=== PATIENT | female | born 1980 | race Caucasian/White ===

== ENCOUNTER 2019-12-04 07:42 | Outpatient (CLI) | payer OTHER, SELFPAY | END 2019-12-04 07:43 | disposition home or self-care (01) | LOC: ANHLAB 07:42 | PROVIDERS: Visit Provider Family Medicine | DX: R39.9 Unspecified symptoms and signs involving the genitourinary system (principal) | CPT/HCPCS: 87086 ==

== ENCOUNTER 2020-06-06 07:27 | Outpatient (CLI) | payer OTHER, SELFPAY ==
[2020-06-06 08:04] LABS: Alanine Aminotransferase 29 U/L (4-35); Alkaline Phosphatase 53 U/L (38-126); Anion Gap 10 mmol/L (8-16); Aspartate Amino Transferase 30 U/L (14-36); Bilirubin,Total 0.3 mg/dL (0.2-1.3); Blood Urea Nitrogen 12 mg/dL (7-17); Calcium 9.1 mg/dL (8.4-10.2); Carbon Dioxide 25 mmol/L (22-30); Chloride 103 mmol/L (98-107); Cholesterol 234 mg/dL (0-200); Estimated Glomerular Filt Rate > 60; Glucose 103 mg/dL (65-105); HDL Direct 55 mg/dL; Potassium 4.1 mmol/L (3.4-5.0); Sodium 138 mmol/L (137-145); Triglycerides 236 mg/dL (<150)
[2020-06-06 08:15] LABS: LDL Cholesterol Direct 141 mg/dL
[2020-06-06 08:45] LABS: HIV 1/2 Ab P24 Ag Result Negative (Negative)
[2020-06-06 08:49] LABS: Hepatitis B Surface Antigen Negative (Negative)
[2020-06-06 09:06] LABS: Hepatitis C Virus Antibody Negative (Negative)
[2020-06-07 11:30] LABS: Rapid Plasma Reagin Non-Reactive (NonReactive)
== END 2020-06-06 07:28 | disposition home or self-care (01) ==
LOC: ANHLAB 07:30
PROVIDERS: Visit Provider Family Medicine
DX: Z11.3 Encounter for screening for infections with a predominantly sexual mode of transmission (principal); E78.5 Hyperlipidemia, unspecified; I10 Essential (primary) hypertension
CPT/HCPCS: 36415; 80053; 80061; 86592; 86695; 86696; 86703; 86803; 87340; G0432

== ENCOUNTER 2020-12-09 04:30 | Emergency (ER) | payer OTHER, SELFPAY ==
--- NOTE | ~2020-12-09 | CT_ITS ---
EXAMINATION: CT brain wo con INDICATION: Head injury COMPARISON: None TECHNIQUE: Standard unenhanced head CT. The dose-length product (DLP) was 605.33 mGy-cm. The mA was a djusted according to patient size. Iterative reconstruction technique was employed. FINDINGS: There is no intracranial hemorrhage, acute infarction, or abnormal mass lesion. The ventric les are normal. There is no abnormal mass effect or midline shift. The montez-white matter differentiat ion is normal. The basal cisterns are patent. The orbits are normal. The paranasal sinuses, mastoids and calvarium are normal. IMPRESSION: 1. No acute intracranial abnormality. Reviewed, dictated and finalized at location A.
--- NOTE | ~2020-12-09 | CT_ITS ---
EXAMINATION: CT facial & cervical spine wo DATE: 12/09/2020 05:15 INDICATION: Head injury TECHNIQUE: Computed tomography (CT) of the maxillofacial region and cervical spine was performed with out intravenous contrast. The dose-length product (DLP) was 551.81 mGy-cm. Automated exposure control and iterative reconstruction technique were employed. COMPARISON: None FINDINGS: MAXILLOFACIAL CT: No facial bone fracture is identified. The paranasal sinuses are clear. The globes and orbits are nor mal. The soft tissues are unremarkable. CERVICAL SPINE CT: There is no fracture, dislocation, or subluxation. The vertebral body heights, alignment, and interve rtebral disc spaces are normal. The paravertebral soft tissues are unremarkable. The odontoid is inta ct. IMPRESSION: 1. No acute abnormality of the facial bones or cervical spine. Reviewed, dictated and finalized at location A.
[2020-12-09 04:32] VITALS: BP 186/100; PULSE 119; RESP 20; TEMP 37.1; O2SAT 98
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
[2020-12-09] MEDS: TETANUS,DIPHTHERIA,AC PERTUSSIS ADULT (0.5 ML) BOOSTRIX IM (05:03)
== END 2020-12-09 06:37 | disposition home or self-care (01) ==
PROVIDERS: Emergency Provider Emergency Medicine; PCP Family Medicine
DX: S00.83XA Contusion of other part of head, initial encounter (principal); S50.12XA Contusion of left forearm, initial encounter; S50.11XA Contusion of right forearm, initial encounter; Z23 Encounter for immunization; Y04.2XXA Assault by strike against or bumped into by another person, initial encounter; Y93.F9 Activity, other caregiving
CPT/HCPCS: 70450; 70486; 72125; 90471; 90715; 99284

== ENCOUNTER 2021-10-20 07:36 | Outpatient (CLI) | payer OTHER, SELFPAY ==
[2021-10-20 08:52] LABS: Basophils Absolute Auto 0.1 K/mm3 (0.0-0.1); Basophils Percent Auto 0.6 % (0.2-1.2); Eosinophils Absolute Auto 0.2 K/mm3 (0-0.3); Eosinophils Percent Auto 1.8 % (0-4.4); Hematocrit 37.3 % (37.0-47.0); Hemoglobin 11.8 g/dL (12.0-15.0); Immature Granulocyte Absolute 0.15 K/mm3 (0.00-0.031); Immature Granulocyte Percent A 1.1 % (0-0.5); Lymphocytes Absolute Auto 4.46 K/mm3 (0.9-3.2); Lymphocytes Percent Auto 32.6 % (18.3-44.2); Mean Corpuscular HGB Conc 31.6 g/dl (32-36); Mean Corpuscular Hemoglobin 27.8 pg (26-34); Mean Platelet Volume 10.2 fl (7.4-10.4); Monocytes Absolute Auto 0.9 K/mm3 (0.1-0.6); Monocytes Percent Auto 6.6 % (2.6-8.5); Neutrophils Absolute Auto 7.9 K/mm3 (1.3-6.7); Neutrophils Percent Auto 57.3 % (45.5-73.1); Platelet Count Result 289 k/mm3 (150-375); Red Blood Count 4.24 M/mm3 (4.2-5.4); Red Cell Distribution Width 14.6 % (11.5-14.5); White Blood Count 13.7 K/mm3 (4.5-10.0)
[2021-10-20 09:02] LABS: Alanine Aminotransferase 36 U/L (6-35); Albumin Level 4.3 g/dL (3.5-5.1); Alkaline Phosphatase 55 U/L (38-126); Anion Gap 14 mmol/L (8-16); Aspartate Amino Transferase 41 U/L (14-36); Bilirubin,Total 0.5 mg/dL (0.2-1.3); Blood Urea Nitrogen 14 mg/dL (7-17); Calcium 9.6 mg/dL (8.4-10.2); Carbon Dioxide 24 mmol/L (22-30); Chloride 100 mmol/L (98-107); Cholesterol 206 mg/dL (0-200); Estimated Glomerular Filt Rate > 60; Glucose 108 mg/dL (65-110); HDL Direct 53 mg/dL; Potassium 3.9 mmol/L (3.4-5.0); Sodium 138 mmol/L (137-145); Triglycerides 280 mg/dL (<150)
[2021-10-20 09:13] LABS: LDL Cholesterol Direct 112 mg/dL
== END 2021-10-20 07:37 | disposition home or self-care (01) ==
PROVIDERS: PCP Family Medicine; Visit Provider Family Medicine
DX: Z01.818 Encounter for other preprocedural examination (principal); Z13.220 Encounter for screening for lipoid disorders
CPT/HCPCS: 36415; 80053; 80061; 85025

== ENCOUNTER 2021-11-27 00:10 | Day surgery (SDC) | payer OTHER, SELFPAY ==
[2021-11-13 14:46] VITALS: BMI 49.4
[2021-11-27] MEDS: LACTATED RINGERS 1,000 ML 150 ML IV CONT (07:49)
[2021-11-27 07:50] VITALS: BP 152/87; PULSE 97; RESP 18; TEMP 36.3; O2SAT 99
--- NOTE | 2021-11-27 08:03 | WPDANESEPPF ---
Anes - Initial Pre Proc Eval Procedure: Operation Date: 11/27/21 08:45 Proposed Procedures p Esophagogastroduodenoscopy - Rony Harkins MD Date/Time: 11/27/21 08:03 Surgeon: Rony Harkins MD Pre Op Diagnosis: GERD Patient Data Age: 41 Gender: F Height: 1.75 m Weight: 153.8 kg Last Vital Signs Temp 36.3 C L 11/27/21 07:50 Pulse 97 11/27/21 07:50 Resp 18 11/27/21 07:50 BP 152/87 H 11/27/21 07:50 Pulse Ox 99 11/27/21 07:50 O2 Del Method Room Air 11/27/21 07:50 Allergies Allergy/AdvReac Type Severity Reaction Status Date / Time No Known Allergies Allergy Verified 11/27/21 07:49 Home Medications Medication Instructions Recorded Confirmed Type allopurinol 300 mg tablet 300 mg PO DAILY 12/09/20 11/13/21 History meloxicam 15 mg tablet 15 mg PO DAILY PRN Pain 12/09/20 11/13/21 History omeprazole 20 mg capsule,delayed 20 mg PO DAILY 12/09/20 11/13/21 History release drospirenone (contraceptive) 4 mg 1 tablet PO DAILY #84 tabs 10/30/21 11/13/21 Rx (28) tablet (Slynd) lisinopril 20 1 tablet PO DAILY 11/05/21 11/13/21 History mg-hydrochlorothiazide 25 mg tablet alprazolam 0.25 mg tablet 0.25 mg PO TID PRN Anxiety 11/13/21 11/13/21 History cyclobenzaprine 10 mg tablet 10 mg PO TID PRN Muscle Spasm 11/13/21 11/13/21 History Patient hx anesthesia problems: none Family hx anesthesia problems: none Results Review: All pre-operative results and documents have been reviewed as part of the pre-operative evaluation. [facility] Past Medical History Medical History (Updated 11/27/21 @ 08:03 by Roland Burt MD) Anxiety disorder High cholesterol Hypertension Morbid obesity ROSSY on CPAP Surgical History Surgical History History of cholecystectomy [place] teeth removed Family History Family History Other Acute myocardial infarction Diabetes mellitus Hypercholesterolemia Social History Social History Smoking status: Never smoker Alcohol intake: current Drinks per week: 3 Substance use: never Living arrangements: alone Gender identity (if verbalized by the patient): Female Spiritual care concerns: No Anes - Eval Final PreProcedure Day of Procedure 11/27/21 08:03 Patient weight: morbidly obese Heart: regular rate and rhythm Lungs: clear to auscultation Airway: Mallampati scale class II Neurological: alert and oriented Last oral intake: >/= 8 hours ASA classification: II Emergent: no Anesthetic plan: proceed Anesthesia type and monitoring: general GIVS and standard monitoring Results Review: All pre-operative results and documents have been reviewed as part of the pre-operative evaluation. Informed Consent: The patient's anesthetic plan and its attendant risks and benefits were discussed with the patient/family/POA. Questions were solicited and answers provided to the satisfaction of the patient/family/POA.
--- NOTE | 2021-11-27 08:32 | PM.HPGS ---
History of Present Illness History of Present Illness Consent: Risks, benefits, and alternatives have been discussed and questions answered. Patient agrees to proceed with procedure. Chief complaint: GERD Narrative: Joann Khalil is a 41 year old female with gerd controlled with omeprazole for 5 years but never had EGD, also she will get gastric sleeve at some point. Review of Systems Constitutional: Constitutional: Denies headache(s) and Denies weakness Eyes: Eyes: Denies blurry vision ENT: Reports Normal hearing present, Denies headache(s) and Denies neck pain Cardiovascular: Cardiovascular: Denies chest pain and Denies dyspnea Respiratory: Respiratory: Denies dyspnea Gastrointestinal: Gastrointestinal: Reports no additional gastrointestinal complaints Genitourinary: Genitourinary: Denies dysuria Musculoskeletal: Musculoskeletal: Denies neck pain Integumentary/Breasts: Skin/Breast: Denies dry skin Neurologic: Reports Normal hearing present, Denies headache(s) and Denies weakness Psychiatric: Psychiatric: Denies anxiety Endocrine: Endocrine: Denies change in body appearance Hematologic/Lymphatic: Hematologic/Lymphatic: Denies easy bleeding Allergic/Immunologic: Allergic/Immunologic: Denies urticaria PMFSH Past Medical History Medical History (Updated 11/27/21 @ 08:33 by Rony Harkins MD) Anxiety disorder GERD (gastroesophageal reflux disease) High cholesterol Hypertension Morbid obesity ROSSY on CPAP Surgical History Surgical History History of cholecystectomy [place] teeth removed Family History Family History Other Acute myocardial infarction Diabetes mellitus Hypercholesterolemia Social History Social History Smoking status: Never smoker Alcohol intake: current Drinks per week: 3 Substance use: never Living arrangements: alone Gender identity (if verbalized by the patient): Female Spiritual care concerns: No Meds Home Medications and Allergies Home Medications Medication Instructions Recorded Confirmed Type allopurinol 300 mg tablet 300 mg PO DAILY 12/09/20 11/13/21 History meloxicam 15 mg tablet 15 mg PO DAILY PRN Pain 12/09/20 11/13/21 History omeprazole 20 mg capsule,delayed 20 mg PO DAILY 12/09/20 11/13/21 History release drospirenone (contraceptive) 4 mg 1 tablet PO DAILY #84 tabs 10/30/21 11/13/21 Rx (28) tablet (Slynd) lisinopril 20 1 tablet PO DAILY 11/05/21 11/13/21 History mg-hydrochlorothiazide 25 mg tablet alprazolam 0.25 mg tablet 0.25 mg PO TID PRN Anxiety 11/13/21 11/13/21 History cyclobenzaprine 10 mg tablet 10 mg PO TID PRN Muscle Spasm 11/13/21 11/13/21 History Allergies Allergy/AdvReac Type Severity Reaction Status Date / Time No Known Allergies Allergy Verified 11/27/21 07:49 Vital Signs Vital Signs - 24 hr 11/27/21 07:50 Temperature 97.3 F L Pulse Rate 97 Respiratory Rate 18 Blood Pressure 152/87 H Pulse Oximetry 99 Oxygen Delivery Room Air Exam Const: General: comfortable and no acute distress HENMT: General nose exam: Normal nares present Eyes: General: appearance normal, both eyes and all related structures Neck: Neck: no JVD Resp: Auscultation: clear to auscultation bilaterally Cardio: Rate: regular rate Rhythm: regular rhythm GI: Inspection: non-distended GI Palp: Yes Soft to palpation Skin: General skin exam: normal color Neuro: General: gait normal Speech: normal speech Extrem: General: normal to inspection Psych: Mental Status: mental status grossly normal Assessment and Plan Assessment and plan (1) GERD (gastroesophageal reflux disease): Code(s): K21.9 - Gastro-esophageal reflux disease without esophagitis Status: Acute Assessment and Plan: egd with bx controlled with pp
[2021-11-27 08:48] VITALS: BP 144/91; PULSE 102; RESP 18; O2SAT 99
[2021-11-27 08:58] VITALS: BP 141/87; PULSE 101; RESP 18; O2SAT 98
[2021-11-27 09:08] VITALS: BP 139/94; PULSE 113; RESP 19; O2SAT 97
== END 2021-11-27 09:21 | disposition home or self-care (01) ==
PROVIDERS: PCP Family Medicine; Visit Provider Internal Medicine Gastroenterology
PROC: 0DJ08ZZ Inspection of Upper Intestinal Tract, Via Natural or Artificial Opening Endoscopic (ICD-10-PCS; CPT 43235; principal; 2021-11-27 08:45)
DX: K21.9 Gastro-esophageal reflux disease without esophagitis (principal); F41.9 Anxiety disorder, unspecified; E78.00 Pure hypercholesterolemia, unspecified; I10 Essential (primary) hypertension; G47.33 Obstructive sleep apnea (adult) (pediatric); Z90.49 Acquired absence of other specified parts of digestive tract; E66.01 Morbid (severe) obesity due to excess calories; Z68.43 Body mass index [BMI] 50.0-59.9, adult
CPT/HCPCS: 43239; 87081; 88305; J2704; J7120

== ENCOUNTER → 2022-01-28 13:06 | Outpatient (CLI) | payer OTHER, SELFPAY ==
--- NOTE | ~2022-01-28 | XR_ITS ---
XR knee RT 3V DATE: 01/28/2022 13:19 INDICATION: Posterior knee pain for 9 to 12 months. No injury. TECHNIQUE: AP, lateral, sunrise views COMPARISON: None FINDINGS: There is tricompartment periarticular spurring. There is moderate narrowing at the medial c ompartment and patellofemoral compartment joint spaces. No fracture, dislocation, periosteal reaction or bone destruction or significant joint effusion is ev ident. No radiopaque intra-articular loose body or chondrocalcinosis. No periosteal reaction or bone destruction. There is osteopenia. IMPRESSION: Tricompartment osteoarthritis Osteopenia Reviewed, dictated and finalized at location A. ER SHOP MANAGER
== END ==
PROVIDERS: PCP Family Medicine; Visit Provider Family Medicine
DX: M25.561 Pain in right knee (principal); M17.11 Unilateral primary osteoarthritis, right knee; M85.861 Other specified disorders of bone density and structure, right lower leg
CPT/HCPCS: 73562

== ENCOUNTER 2022-02-26 10:04 | Outpatient (CLI) | payer OTHER, SELFPAY ==
--- NOTE | ~2022-02-26 | MM_ITS ---
EXAMINATION: MM screening brenda BI w emerita HISTORY: Baseline screening mammogram TECHNIQUE: Craniocaudal and mediolateral oblique 3-D tomosynthesis images were obtained and synthetic 2-D images were generated. CAD analysis was submitted and interpreted. COMPARISON: None, baseline BREAST PARENCHYMAL COMPOSITION: There are scattered areas of fibroglandular density. FINDINGS: RIGHT BREAST: No suspicious mass, calcification, or architectural distortion are identified to sugges t malignancy. LEFT BREAST: An asymmetry is present in the middle third of the inner breast 5 cm from the nipple on the craniocaudal view. IMPRESSION: 1. Right breast asymmetry on the craniocaudal view. 2. Additional mammographic views and possible breast ultrasound are recommended. BI-RADS Category 0: Incomplete: Needs additional imaging evaluation. Reviewed, dictated and finalized at location A. CENTER MANAGER IMPRESSION: 1. Right breast asymmetry on the craniocaudal view. 2. Additional mammographic views and possible breast ultrasound are recommended . BI-RADS Category 0: Incomplete: Needs additional imaging evaluation.
== END 2022-02-26 10:05 | disposition home or self-care (01) ==
LOC: ANHIMG 10:06
PROVIDERS: PCP Family Medicine; Visit Provider Obstetrics & Gynecology
DX: Z12.31 Encounter for screening mammogram for malignant neoplasm of breast (principal)
CPT/HCPCS: 77063; 77067

== ENCOUNTER 2022-03-20 12:48 | Outpatient (CLI) | payer OTHER, SELFPAY ==
--- NOTE | ~2022-03-20 | MMUS_ITS ---
EXAMINATION: MM diagnostic brenda LT w emerita, US breast LT limited HISTORY: TECHNIQUE: Additional 3-D tomosynthesis images of were performed and synthetic 2-D images were genera sam. CAD analysis was submitted and interpreted. High resolution breast ultrasound was performed. COMPARISON: None FINDINGS: MAMMOGRAPHIC FINDINGS: There is up to 5 x 10 mm irregular opacity in the anterior lower inner left breast. ULTRASOUND: Left breast 7:00 2 cm from nipple: There is an ill-defined irregular area of hypoechogenicity with po sterior shadowing which likely corresponds to the mammographic abnormality. Ultrasound-guided biopsy is recommended. IMPRESSION: 1. Suspicious ill-defined irregular mass in the lower inner left breast at 7:00 2. Ultrasound-guided biopsy is recommended BI-RADS category 4, suspicious findings. Dr. Mayes telephoned the report and ultrasound-guided biopsy recommendation on 03/20/2022 at 1345 hour s to Mackenzie Kaur. Reviewed, dictated and finalized at location A. NE DRILLER IMPRESSION: 1. Suspicious ill-defined irregular mass in the lower inner left breast at 7:00 2. Ultrasound-guided biopsy is recommended BI-RADS category 4, suspicious findings. Dr. Mayes telephoned the report and ultrasound-guided biopsy recommendation on 05/21/2021 at 1345 hours to Mackenzie Kaur.
== END 2022-03-20 12:49 | disposition home or self-care (01) ==
LOC: ANHIMG 12:49
PROVIDERS: PCP Family Medicine; Visit Provider Obstetrics & Gynecology
DX: N64.89 Other specified disorders of breast (principal); R92.8 Other abnormal and inconclusive findings on diagnostic imaging of breast
CPT/HCPCS: 76642; 77061; 77065; G0279

== ENCOUNTER 2022-05-03 10:58 | Outpatient (CLI) | payer OTHER, SELFPAY ==
[2022-05-03 11:41] LABS: Hemoglobin A1C 5.3 % (<5.7)
[2022-05-03 11:42] LABS: Alanine Aminotransferase 52 U/L (6-35); Albumin Level 4.4 g/dL (3.5-5.1); Alkaline Phosphatase 67 U/L (38-126); Aspartate Amino Transferase 34 U/L (14-36); Bilirubin,Total 0.6 mg/dL (0.2-1.3)
== END 2022-05-03 10:59 | disposition home or self-care (01) ==
LOC: ANHLAB 11:02
PROVIDERS: PCP Family Medicine; Visit Provider Family Medicine
DX: R74.01 Elevation of levels of liver transaminase levels (principal)
CPT/HCPCS: 36415; 80076; 83036

== ENCOUNTER 2022-07-01 07:49 | Outpatient (CLI) | payer OTHER, SELFPAY ==
[2022-07-01 08:11] LABS: Basophils Absolute Auto 0.1 K/mm3 (0.0-0.1); Basophils Percent Auto 0.6 % (0.2-1.2); Eosinophils Absolute Auto 0.3 K/mm3 (0-0.3); Eosinophils Percent Auto 2.2 % (0-4.4); Hematocrit 38.3 % (37.0-47.0); Hemoglobin 12.4 g/dL (12.0-15.0); Immature Granulocyte Absolute 0.04 K/mm3 (0.00-0.031); Immature Granulocyte Percent A 0.3 % (0-0.5); Lymphocytes Absolute Auto 3.05 K/mm3 (0.9-3.2); Lymphocytes Percent Auto 26.1 % (18.3-44.2); Mean Corpuscular HGB Conc 32.4 g/dl (32-36); Mean Corpuscular Hemoglobin 28.4 pg (26-34); Mean Corpuscular Volume 87.8 fl (80-100); Mean Platelet Volume 10.4 fl (7.4-10.4); Monocytes Absolute Auto 0.7 K/mm3 (0.1-0.6); Monocytes Percent Auto 5.9 % (2.6-8.5); Neutrophils Absolute Auto 7.6 K/mm3 (1.3-6.7); Neutrophils Percent Auto 64.9 % (45.5-73.1); Platelet Count Result 316 k/mm3 (150-375); Red Blood Count 4.36 M/mm3 (4.2-5.4); Red Cell Distribution Width 16.1 % (11.5-14.5); White Blood Count 11.7 K/mm3 (4.5-10.0)
[2022-07-01 08:24] LABS: Alanine Aminotransferase 37 U/L (6-35); Albumin Level 4.1 g/dL (3.5-5.1); Alkaline Phosphatase 67 U/L (38-126); Anion Gap 7 mmol/L (8-16); Aspartate Amino Transferase 26 U/L (14-36); Bilirubin,Total 0.9 mg/dL (0.2-1.3); Blood Urea Nitrogen 13 mg/dL (7-17); Calcium 9.2 mg/dL (8.4-10.2); Carbon Dioxide 27 mmol/L (22-30); Chloride 105 mmol/L (98-107); Cholesterol 199 mg/dL (0-200); Estimated Glomerular Filt Rate > 60; Glucose 95 mg/dL (65-110); HDL Direct 37 mg/dL; Magnesium 2.1 mg/dL (1.6-2.3); Potassium 3.9 mmol/L (3.4-5.0); Sodium 139 mmol/L (137-145); Triglycerides 123 mg/dL (<150)
[2022-07-01 08:35] LABS: LDL Cholesterol Direct 122 mg/dL
[2022-07-01 08:52] LABS: Vitamin D 25 Hydroxy 79.7 ng/mL
[2022-07-01 10:26] LABS: Folic Acid > 20.0 ng/mL (2.76->20)
== END 2022-07-01 07:50 | disposition home or self-care (01) ==
PROVIDERS: PCP Family Medicine
DX: K91.2 Postsurgical malabsorption, not elsewhere classified (principal); Z13.21 Encounter for screening for nutritional disorder; Z98.84 Bariatric surgery status
CPT/HCPCS: 36415; 80053; 80061; 82306; 82607; 82746; 83036; 83735; 84425; 85025

== ENCOUNTER 2022-11-21 11:39 | Outpatient (CLI) | payer OTHER, SELFPAY ==
--- NOTE | ~2022-11-21 | MM_ITS ---
EXAMINATION: MM diagnostic brenda LT w emerita HISTORY: Follow-up after benign left breast biopsy. TECHNIQUE: Craniocaudal, mediolateral, and mediolateral oblique 3-D tomosynthesis images of the left breast were performed and synthetic 2-D images were generated. CAD analysis was submitted and interpr eted. COMPARISON: 03/20/2022, 02/26/2022 BREAST PARENCHYMAL COMPOSITION: There are scattered areas of fibroglandular density. FINDINGS: There are changes of interval biopsy in the lower inner left breast. No suspicious mass, ca lcification, or architectural distortion are identified. IMPRESSION: 1. No mammographic evidence of malignancy. 2. Routine screening mammography is recommended. BI-RADS Category 1: Negative Reviewed, dictated and finalized at location L.
== END 2022-11-21 11:40 | disposition home or self-care (01) ==
PROVIDERS: PCP Family Medicine; Visit Provider Obstetrics & Gynecology
DX: N64.89 Other specified disorders of breast (principal)
CPT/HCPCS: 77061; 77065; G0279

== ENCOUNTER 2023-01-03 07:54 | Outpatient (CLI) | payer OTHER, SELFPAY ==
[2023-01-03 08:58] LABS: Hematocrit 37.1 % (37.0-47.0); Hemoglobin 12.2 g/dL (12.0-15.0); Mean Corpuscular HGB Conc 32.9 g/dl (32-36); Mean Corpuscular Hemoglobin 29.4 pg (26-34); Mean Corpuscular Volume 89.4 fl (80-100); Mean Platelet Volume 10.4 fl (7.4-10.4); Platelet Count Result 286 k/mm3 (150-375); Red Blood Count 4.15 M/mm3 (4.2-5.4); Red Cell Distribution Width 13.2 % (11.5-14.5); White Blood Count 7.9 K/mm3 (4.5-10.0)
[2023-01-03 09:13] LABS: Hemoglobin A1C 4.8 % (<5.7)
[2023-01-03 09:14] LABS: Alanine Aminotransferase 46 U/L (6-35); Albumin Level 4.4 g/dL (3.5-5.1); Alkaline Phosphatase 51 U/L (38-126); Anion Gap 7 mmol/L (8-16); Aspartate Amino Transferase 34 U/L (14-36); Bilirubin,Total 0.9 mg/dL (0.2-1.3); Blood Urea Nitrogen 17 mg/dL (7-17); Calcium 9.4 mg/dL (8.4-10.2); Carbon Dioxide 28 mmol/L (22-30); Chloride 99 mmol/L (98-107); Cholesterol 206 mg/dL (0-200); Estimated Glomerular Filt Rate > 60; Glucose 86 mg/dL (65-110); HDL Direct 54 mg/dL; Potassium 3.4 mmol/L (3.4-5.0); Sodium 134 mmol/L (137-145); Triglycerides 109 mg/dL (<150)
[2023-01-03 09:25] LABS: LDL Cholesterol Direct 103 mg/dL
[2023-01-03 09:37] LABS: Vitamin D 25 Hydroxy 78.9 ng/mL
[2023-01-03 10:27] LABS: Folic Acid > 20.0 ng/mL (2.76->20)
[2023-01-08 14:02] LABS: Vitamin B1 27 nmol/L (8-30)
== END 2023-01-03 07:55 | disposition home or self-care (01) ==
PROVIDERS: PCP Family Medicine; Referring Provider Family Medicine
DX: K91.2 Postsurgical malabsorption, not elsewhere classified (principal); Z13.21 Encounter for screening for nutritional disorder; Z98.84 Bariatric surgery status
CPT/HCPCS: 36415; 80053; 80061; 82306; 82607; 82746; 83036; 83735; 84425; 85027

== ENCOUNTER 2023-01-23 19:14 | Emergency (ER) | payer OTHER, SELFPAY ==
--- NOTE | ~2023-01-23 | XR_ITS ---
XR finger 3rd RT min 2V, XR hand RT min 3V 01/23/2023 19:38 Indication: Right third finger pain after trauma Procedure: 4 views right third finger and 3 views right hand Comparison: No prior studies for comparison. Findings: There is an ossific density dorsal to the third distal interphalangeal joint with flexion d eformity at the DIP. No foreign bodies. Impression: 1: Probable acute avulsion fracture dorsal margin of the third distal interphalangeal joint with flex ion deformity, consistent with injury to the extensor mechanism. Reviewed, dictated and finalized at location A. Impression: 1: Probable acute avulsion fracture dorsal margin of the third distal interphal angeal joint with flexion deformity, consistent with injury to the extensor mec hanism. Impression: 1: Probable acute avulsion fracture dorsal margin of the third distal interphal angeal joint with flexion deformity, consistent with injury to the extensor mec hanism.
[2023-01-23 19:24] VITALS: BP 136/90; PULSE 93; RESP 18; TEMP 36.8; O2SAT 100
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
[2023-01-23 21:00] VITALS: BP 144/102; PULSE 82; RESP 16; TEMP 36.7; O2SAT 98
== END 2023-01-23 21:01 | disposition home or self-care (01) ==
LOC: ANHED 20:45
PROVIDERS: Emergency Provider Physician Assistant; PCP Family Medicine
DX: M20.011 Mallet finger of right finger(s) (principal); F41.9 Anxiety disorder, unspecified; E78.00 Pure hypercholesterolemia, unspecified; I10 Essential (primary) hypertension; G47.33 Obstructive sleep apnea (adult) (pediatric); E66.01 Morbid (severe) obesity due to excess calories; Z68.29 Body mass index [BMI] 29.0-29.9, adult; K21.9 Gastro-esophageal reflux disease without esophagitis; Z98.84 Bariatric surgery status; Z90.49 Acquired absence of other specified parts of digestive tract
CPT/HCPCS: 29130; 73130; 73140; 99283

== ENCOUNTER 2023-01-30 13:39 | Outpatient (RCR) | payer OTHER, SELFPAY ==
--- NOTE | 2023-01-30 14:49 | OTOPEVAL1 ---
Assessment and note entered by Aris Tucker, ERMELINDA/Feng, CHT Evaluation Information Diagnosis Mallet finger of right middle finger Subjective Information Patient has been splinted in extension since 01/25/23. She is an RN and right handed. Reports difficulties with any hand use - writing, typing, and self care. Presents in a Stax splint. Reported Pain Level Pain Score 0: Self Report Assessment OT Clinical Summary Patient referred to OT with dx of mallet finger to right middle finger. She presents today in a Stax splint with skin maceration noted beneath the splint. Fabricated a custom thermoplastic splint for patient to also use to let the skin on the dorsum of the finger to be more open to air. She plans to alternate these, Stax for when at work as it's easier to clean and the thermoplastic outside of work. Educated on ROM of the uninvolved joints. Plan: Patient to continue splinting and ROM of the unaffected joints x6 weeks. Scheduled for her to return to initiate ROM of the DIP and to begin splint weaning schedule. Allowing her to return on an as needed basis during those 6 weeks for any splinting adjustments or needs. Plan of Care Interventions Therapeutic Exercise,Check Out for Orthotic/Pr OT Services Indicated Yes Treatment Frequency and 0-1x/week for 6 weeks Duration These treatments will address the objective and functional deficits as defined above. The patient will be advanced safely and appropriately in order for the patient to progress towards his/her prior level of function. Additional exercises will be introduced and as well as a comprehensive home exercise program upon discharge, if needed, ?to ensure carryover of functional gains achieved in the clinic. This treatment plan has been reviewed and agreement upon by the patient.
--- NOTE | 2023-03-07 13:37 | OTOPEVAL1 ---
Assessment and note entered by ERMELINDA Monique/Feng, CHT Discharge Notification 03/07/23 OT Clinical Summary Patient referred to OT with dx of mallet finger of the right middle finger. A custom DIP extension splint was fabricated and she was issued ROM HEP of the uninvolved joints. She did not need to return for any splinting needs since her initial appointment on 01/30/23. Discharging from OT. These treatments will address the objective and functional deficits as defined above. The patient will be advanced safely and appropriately in order for the patient to progress towards his/her prior level of function. Additional exercises will be introduced and as well as a comprehensive home exercise program upon discharge, if needed, ?to ensure carryover of functional gains achieved in the clinic. This treatment plan has been reviewed and agreement upon by the patient.
== END 2023-03-07 14:21 | disposition home health service (06) ==
LOC: ANHGOSHOT 13:39
PROVIDERS: PCP Family Medicine; Visit Provider Plastic Surgery
DX: M20.011 Mallet finger of right finger(s) (principal)
CPT/HCPCS: 97165; L3933

== ENCOUNTER 2023-04-08 08:56 | Outpatient (CLI) | payer OTHER, SELFPAY ==
--- NOTE | ~2023-04-08 | MM_ITS ---
EXAMINATION: MM screening brenda BI w emerita HISTORY: Screening TECHNIQUE: Craniocaudal and mediolateral oblique 3-D tomosynthesis images were obtained and synthetic 2-D images were generated. CAD analysis was submitted and interpreted. COMPARISON: Comparison to multiple prior studies sequentially, with oldest reviewed study dated 08/2021. BREAST PARENCHYMAL COMPOSITION: Breast composed of scattered areas of fibroglandular density FINDINGS: There is no evidence of suspicious mass, calcification, or architectural distortion to sugg est malignancy in either breast. There has been no suspicious interval change. IMPRESSION: 1. No mammographic evidence of malignancy. 2. Recommend routine screening mammography in one year. BI-RADS Category 1: Negative Reviewed, dictated and finalized at location A. CH ACCOUNT EXECUTIVE
== END 2023-04-08 08:57 | disposition home or self-care (01) ==
LOC: ANHIMG 09:00
PROVIDERS: PCP Family Medicine; Visit Provider Obstetrics & Gynecology
DX: Z12.31 Encounter for screening mammogram for malignant neoplasm of breast (principal)
CPT/HCPCS: 77063; 77067

== ENCOUNTER 2024-02-11 08:59 | Outpatient (CLI) | payer OTHER, SELFPAY ==
[2024-02-11 09:40] LABS: Basophils Absolute Auto 0.1 K/mm3 (0.0-0.1); Basophils Percent Auto 1.1 % (0.2-1.2); Eosinophils Absolute Auto 0.2 K/mm3 (0-0.3); Eosinophils Percent Auto 3.7 % (0-4.4); Hematocrit 37.4 % (37.0-47.0); Hemoglobin 12.4 g/dL (12.0-15.0); Immature Granulocyte Absolute 0.01 K/mm3 (0.00-0.031); Immature Granulocyte Percent A 0.2 % (0-0.5); Lymphocytes Absolute Auto 2.22 K/mm3 (0.9-3.2); Lymphocytes Percent Auto 39.1 % (18.3-44.2); Mean Corpuscular HGB Conc 33.2 g/dl (32-36); Mean Corpuscular Hemoglobin 30.3 pg (26-34); Mean Corpuscular Volume 91.4 fl (80-100); Mean Platelet Volume 9.5 fl (7.4-10.4); Monocytes Absolute Auto 0.5 K/mm3 (0.1-0.6); Monocytes Percent Auto 8.1 % (2.6-8.5); Neutrophils Absolute Auto 2.7 K/mm3 (1.3-6.7); Neutrophils Percent Auto 47.8 % (45.5-73.1); Platelet Count Result 272 k/mm3 (150-375); Red Blood Count 4.09 M/mm3 (4.2-5.4); Red Cell Distribution Width 13.1 % (11.5-14.5); White Blood Count 5.7 K/mm3 (4.5-10.0)
[2024-02-11 09:59] LABS: Alanine Aminotransferase 35 U/L (6-35); Albumin Level 4.1 g/dL (3.5-5.1); Alkaline Phosphatase 42 U/L (38-126); Anion Gap 4 mmol/L (4-12); Aspartate Amino Transferase 30 U/L (14-36); Bilirubin,Total 0.7 mg/dL (0.2-1.3); Blood Urea Nitrogen 19 mg/dL (7-17); Carbon Dioxide 30 mmol/L (22-30); Chloride 102 mmol/L (98-107); Cholesterol 211 mg/dL (0-200); Estimated Glomerular Filt Rate > 60; Glucose 86 mg/dL (65-110); HDL Direct 76 mg/dL; Magnesium 1.9 mg/dL (1.6-2.3); Potassium 3.7 mmol/L (3.4-5.0); Sodium 136 mmol/L (137-145); Triglycerides 87 mg/dL (<150)
[2024-02-11 10:10] LABS: LDL Cholesterol Direct 96 mg/dL
[2024-02-11 10:23] LABS: Vitamin D 25 Hydroxy 62.7 ng/mL
[2024-02-11 10:29] LABS: Thyroid Stimulating Hormone 0.949 uIU/mL (0.465-4.680)
[2024-02-11 11:05] LABS: Folic Acid > 20.0 ng/mL (2.76->20)
[2024-02-13 20:39] LABS: Vitamin B1 28 nmol/L (8-30)
== END 2024-02-11 09:00 | disposition home or self-care (01) ==
PROVIDERS: PCP Family Medicine; Referring Provider Family Medicine
DX: D64.9 Anemia, unspecified (principal); K91.2 Postsurgical malabsorption, not elsewhere classified; L65.9 Nonscarring hair loss, unspecified; Z13.21 Encounter for screening for nutritional disorder; Z98.84 Bariatric surgery status; Z79.899 Other long term (current) drug therapy
CPT/HCPCS: 36415; 80053; 80061; 82306; 82607; 82746; 83036; 83735; 84425; 84443; 85025

== ENCOUNTER 2024-03-11 12:08 | Outpatient (CLI) | payer OTHER, SELFPAY ==
[2024-03-11 14:16] LABS: Beta HCG Quantitative 10.72 mIU/ML
== END 2024-03-11 12:09 | disposition home or self-care (01) ==
LOC: ANHLAB 12:09
PROVIDERS: PCP Family Medicine; Visit Provider Obstetrics & Gynecology
DX: N91.2 Amenorrhea, unspecified (principal)
CPT/HCPCS: 36415; 84702

== ENCOUNTER 2024-03-13 07:37 | Outpatient (CLI) | payer OTHER, SELFPAY ==
[2024-03-13 08:17] LABS: Beta HCG Quantitative 6.13 mIU/ML
--- OUTSIDE RECORDS SUMMARY | 2024-03-20 04:59 | XMS_ITS | Clinical Summary ---
Author Organization [facility] Address [address] [address] [place] [address] Phone Care Team Providers Care Outdoor Illuminating Engineer Name Role Phone Priya Martin MD Primary Care Provider [phone] Allergies No known active allergies Medications Medication Sig Dispensed Refills Start Date End Date Status lisinopriL (PRINIVIL) 40 mg tablet Take 40 mg by mouth daily. Active allopurinoL (ZYLOPRIM) 300 mg tablet Take 300 mg by mouth daily. Active omeprazole magnesium (PriLOSEC) 20 mg Tablet, Delayed Release (E.C.) Take 20 mg by mouth daily. Active ALPRAZolam (XANAX) 0.25 mg tablet Take 0.25 mg by mouth nightly as needed for Anxiety. Active cyclobenzaprine (FLEXERIL) 10 mg tablet Take 10 mg by mouth 3 times daily as needed for Spasm. Active OTHER Provider please include Medication name, dose, route and frequency Active HYDROcodone-acetami nophen (HYCET) 7.5-325 mg/15 mL SolutionIndications :Post-op pain Take 15 mL by mouth every 6 hours as needed for severe pain. Max Daily Amount: 60 mL 300 mL 01/07/2022 Active ondansetron (ZOFRAN ODT) 4 mg Tablet, Rapid Dissolve Place 1 Tablet (4 mg) under tongue every 6 hours as needed for Nausea/Emesis or Nausea. Dissolve tablet on top of tongue, then swallow with saliva. 28 Tablet 01/07/2022 Active Active Problems No known active problems Social History Tobacco Use Types Packs/Day Years Used Date Smoking Tobacco: Never Smokeless Tobacco: Never Tobacco Cessation:Counseling Given: Not Answered Alcohol Use Standard Drinks/Week Comments Not Currently 0 (1 standard drink = 0.6 oz pur e alcohol) Sex and Gender Information Value Date Recorded Sex Assigned at Not on file Gender Identity Not on file Sexual Orientation Not on file Last Filed Vital Signs Vital Sign Reading Time Taken Comments Blood Pressure 157/79 01/08/2022 11:58 AM CDT Pulse 78 01/08/2022 11:58 AM CDT Temperature 36.6 ??C (97.9 ??F) 01/08/2022 11:58 AM C DT Respiratory Rate 18 01/08/2022 11:58 AM CDT Oxygen Saturation 98% 01/08/2022 11:58 AM CDT Inhaled Oxygen Concentration - - Weight 147.4 kg (325 lb) 01/07/2022 6:30 PM CDT Height 172.7 cm (5' 8 ) 01/07/2022 6:30 PM CDT Body Mass Index 49.42 01/07/2022 6:30 PM CDT Plan of Treatment Health Maintenance Due Date Last Done Comments HEPATITIS B VACCINES (1 of 3 - 19+ 3-dose series) 2000 CERVICAL CANCER SCREENING 10/26/2011 BREAST CANCER SCREENING 2021 DTAP/TDAP/TD VACCINES (2 - T d or Tdap) 02/16/2023 02/16/2013 INFLUENZA VACCINE (#1) 2023 HPV VACCINES Aged Out No longer eligi ble based on patient's age to complete this topic PNEUMOCOCCAL VACCINE 0-64 YEARS Aged Out No longer eligible based on patient's age to complete this topic Medical Devices Implanted Type Area Side Boss Device Identifier Shelf Expiration Date Model / Serial / Lot Seamguard Endogia 60 Blk [id number] - [id number] Implanted:Qt y: 1 on 01/07/2022 by Karl Coates MD at [facility] Biological N/A: Stom[employer] [id number] 07/22/2024 12BSGTRI 60B / / [id number] Seamguard Endogia 60 Blk [id number] - [id number] Implanted:Qt y: 1 on 01/07/2022 by Karl Coates MD at [facility] Biological N/A: Stomach [employer] [id number] 07/22/2024 12BSGTRI 60B / / [id number] Seamguard Endogia 60 Prpl [id number] - [id number] Implanted:Qt y: 1 on 01/07/2022 by Karl Coates MD at [facility] Biological N/A: Stomach [employer] [id number] 08/25/2024 12BSGTRI 60P / / [id number] Seamguard Endogia 60 Prpl [id number] - [id number] Implanted:Qt y: 1 on 01/07/2022 by Karl Coates MD at [facility] Biological N/A: Stomach [employer] [id number] 08/25/2024 12BSGTRI 60P / / [id number] Seamguard Endogia 60 Prpl [id number] - [id number] Implanted:Qt y: 1 on 01/07/2022 by Karl Coates MD at [facility] Biological N/A: Stom[employer] [id number] 08/25/2024 12BSGTRI 60P / / [id number] Seamguard Endogia 60 Prpl [id number] - [id number] Implanted:Qt y: 1 on 01/07/2022 by Karl Coates MD at [facility] N/A: Stom[employer] [id number] 08/25/2024 12BSGTRI 60P / / [id number] Advance Directives For more information, please contact: [phone] * Full Code (Latest Code Status on File) Date Activated Date Inactivated Comments 01/07/2022 12:30 PM 01/08/2022 4:54 PM * Full Code Date Activated Date Inactivated Comments 01/07/2022 10:50 AM 01/07/2022 12:30 PM Care Teams Outdoor Illuminating Engineer Relationship Specialty Start Date End Date Priya Martin MD PCP - General Family Practice 12/21/21
--- OUTSIDE RECORDS SUMMARY | 2024-03-20 05:00 | XMS_ITS | Encounter Summary ---
Author Organization [facility] Address [address] [place] [address] Care Team Providers Care Patcher Bowling Ball Name Role Phone Unavailable Primary Care Provider Unavailabl e Encounter Details Date Type Department Care Team (Late st Contact Info) Description 12/18/2021 Abstract [facility] Operating Room [address] [address] Karl Coates MD [address] [address] Social History Tobacco Use Types Packs/Day Years Used Date Smoking Tobacco: Never Assessed Sex and Gender Information Value Date Recorded Sex Assigned at Not on file Gender Identity Not on file Sexual Orientation Not on file documented as of this encounter Plan of Treatment Not on file documented as of this encounter Visit Diagnoses Not on filedocumented in this encounter
--- OUTSIDE RECORDS SUMMARY | 2024-03-20 05:00 | XMS_ITS | Encounter Summary ---
Author Organization [facility] Address [address] [place] [address] Dr. Barrera: Epic Prelude ADT [place] [address] Care Team Providers Care Environmental Lawyer Name Role Phone Priya Martin MD Primary Care Provider [phone] Encounter Details Date Type Department Care Team (Latest Contact Info) Description 01/07/2022 Travel Social History Tobacco Use Types Packs/Day Years Used Date Smoking Tobacco: Never Smokeless Tobacco: Never Alcohol Use Standard Drinks/Week Comments Not Currently 0 (1 standard drink = 0.6 oz pur e alcohol) Sex and Gender Information Value Date Recorded Sex Assigned at Not on file Gender Identity Not on file Sexual Orientation Not on file COVID-19 Exposure Response Date Recorded In the last 10 days, have yo u been in contact with someone who was confirmed or suspected to have Coronavirus/COVID-19? No / Unsure 01/07/2022 6:29 PM CDT documented as of this encounter Plan of Treatment Not on file documented as of this encounter Visit Diagnoses Not on filedocumented in this encounter Care Teams Environmental Lawyer Relationship Specialty Start Date End Date Priya Martin MD PCP - General Family Practice 12/21/21 documented as of this encounter
--- OUTSIDE RECORDS SUMMARY | 2024-03-20 05:00 | XMS_ITS | Encounter Summary ---
Author Organization [facility] Address [address] [place] [address] Care Team Providers Care [employer] Name Role Phone Priya Martin MD Primary Care Provider [phone] Reason for Visit * Auth/Cert Specialty Diagnoses / Procedures Referred By Iban araujo Referred To Contact Perioperative Diagnoses Morbid (severe) obesity due to excess calories Procedures IA LAP, PETROS RESTRICT PROC, LONGITUDINAL GASTRECTOMY IA ABDOMEN SURGERY PROC UNLISTED GASTRECTOMY LONGITUDINAL LAPAROSCOPIC ON-Q PAIN PUMP [facility] [address] [address] Referral ID Status Reason Start Date Expiration Date Visits Re quested Visits Authorized [id number] 1 1 Encounter Details Date Type Department Care Team (Latest Contact Info) Description 01/07/2022 9:28 AM CDT - 01/08/2022 2:54 PM CDT Hospital Encounter [facility] [address] [address] Karl Coates MD [address] [address] Morbid (severe) obesity due to excess calories Discharge Disposition: Home or Self Care Social History Tobacco Use Types Packs/Day Years [...] PM CDT documented as of this encounter Last Filed Vital Signs Vital Sign Reading [...] Mass Index 49.42 01/07/2022 6:30 PM CDT documented in this encounter Discharge Summaries * Kaylan Fairchild FNP - 01/08/2022 6:40 AM CDT Discharge Summary [address] [address] Joann Hamzah Simran 41 y.o. female 1980 CSN: [id number] Date of Admission: 01/07/2022 Date of Discharge: 01/08/2022 Discharging provider: Kaylan RON/Dr Alcala Dictating Provider: Kaylan RON PCP: Priya Martin MD Activity: Per Dr Coates Dispo: home Diet: Bariatric diet Code Status at Discharge: Full Code Wound Care: Per Dr Coates Chief Complaint: Morbid Obesity Body mass index is 49.42 kg/m??. Rationale for admission: Status post Laparoscopic vertical sleeve gastrectomy , secondary to morbidobesity by Dr. Coates hospitalist group was consulted for ongoing medical issues: GERD, hypertension,obstructive sleep apnea on CPAP, anxiety, and general medical exam. Brief History: Patient is 41 y.o. female patient who is Status post Laparoscopic vertical sleeve gastrectomy, secondary to morbid obesity by Dr Coates. Hospitalist group was consulted for ongoing medical issues: GERD, hypertension, obstructive sleep apnea on CPAP, anxiety, and general medical exam. Admitting Dx: Morbid Obesity Discharge Diagnoses: Active Problems: * No active hospital problems. * Discharge medications and new prescriptions: Medication List START taking these medications HYDROcodone-acetaminophen 7.5-325 mg/15 mL Solution Commonly known as: HYCET Take 15 mL by mouth every 6 hours as needed for severe pain. Max Daily Amount: 60 mL Signed by: Dr. Karl Coates MD Quantity: 300 mL Refills: 0 ondansetron 4 mg Tablet, Rapid Dissolve Commonly known as: ZOFRAN ODT Place 1 Tablet (4 mg) under tongue every 6 hours as needed for Nausea/Emesis or Nausea. Dissolve tablet on top of tongue, then swallow with saliva. Signed by: NENITA Up Quantity: 28 Tablet Refills: 0 CONTINUE taking these medications allopurinoL 300 mg tablet Commonly known as: ZYLOPRIM Take 300 mg by mouth daily. Refills: 0 ALPRAZolam 0.25 mg tablet Commonly known as: XANAX Take 0.25 mg by mouth nightly as needed for Anxiety. Refills: 0 cyclobenzaprine 10 mg tablet Commonly known as: FLEXERIL Take 10 mg by mouth 3 times daily as needed for Spasm. Refills: 0 lisinopriL 40 mg tablet Commonly known as: PRINIVIL Take 40 mg by mouth daily. Refills: 0 omeprazole magnesium 20 mg Tablet, Delayed Release (E.C.) Commonly known as: PriLOSEC Take 20 mg by mouth daily. Refills: 0 OTHER Provider please include Medication name, dose, route and frequency Refills: 0 STOP taking these medications lisinopril-hydroCHLOROthiazide 20-25 mg tablet Commonly known as: ZESTORETIC Where to Get Your Medications These medications were sent to [facility] [address], [facility] [address], [place] [id number] Hours: Friday-Friday: 8:30 a.m. - 5:00 p.m., Friday: 9:00 a.m. - 1:00 p.m. HYDROcodone-acetaminophen 7.5-325 mg/15 mL Solution ondansetron 4 mg Tablet, Rapid Dissolve Consultants: [facility] Hospitalists Discharge Lab Data: Lab Results Component Value Date WBC 16.0 (H) 01/08/2022 HGB 11.5 (L) 01/08/2022 HCT 35.2 (L) 01/08/2022 PLT 267 01/08/2022 NA 135 (L) 01/08/2022 CL 101 01/08/2022 K 4.2 01/08/2022 CO2 19 (L) 01/08/2022 BUN 5 (L) 01/08/2022 CREAT 0.56 01/08/2022 GLUCOSE 165 (H) 01/08/2022 Discharge Exam: BP (!) 157/79 (BP Location: Left arm, Patient Position (BP): Sitting) Pulse 78 Temp 97.9 ??F (36.6 ??C) (Oral) Resp 18 Ht 5' 8 (1.727 m) Wt (!) 147.4 kg (325 lb) SpO2 98% BMI 49.42 kg/m?? Physical Exam: General alert, cooperative, no distress, appears stated age Lungs respirations are even and unlabored, lung sounds are clear to auscultation bilaterally Heart regular rate and rhythm, S1, S2 normal, no murmur, click, rub or gallop Abdomen soft, non-tender. Abdominal incisions are well approximated with no erythema or drainage, Bowel sounds normal. Extremities extremities normal, atraumatic, no cyanosis or edema Skin Skin color, texture, turgor normal. No rashes or lesions Hospital Course: This is a 41-year-old female patient who underwent a laparoscopic vertical sleeve gastrectomy, and placement of tunneled abdominal wall catheters x2, secondary to morbid obesity by Dr Coates. Hospitalist group was consulted for medical evaluation and management. Patient tolerated procedure well. Noted mild hyponatremia, anion gap metabolic acidosis most likely secondary to restricted preop diet. Replaced with IV hydration. Noted leukocytosis asymptomatic afebrile most likely secondary to decadronintra op. Patient is tolerating liquids without difficulty, denies any nausea or vomiting and passing flatus. Patient is up ambulating without difficulty, voiding without difficulty and reports little to no pain. Patient was given discharge instructions by Cassi HERNANDEZmanager managed carefire coordinator, Hospitalist Group TUBE TEST TECHNICIAN, and or Dr. Coates. Patient was also instructed to followup with primary care physician forcontinued medical management. Patient verbalizes understanding and reports no questions at this time. Discharge Condition: stable. Follow-up: Priya Martin MD in 1 week(s). Approximately 35 minutes minutes were spent in this discharge activity including patient education, home medications , follow up instructions, and diet information. Signed: NENITA Up 01/08/2022, 4:19 PM documented in this encounter Discharge Instructions * Discharge Instructions* Kaylan Fairchild FNP - 01/07/2022 5:13 PM CDT MEDICATIONS: Lortab Elixir 7.5/325mg Disp# 360ml Sig: Take 15 ml every 6 hours as needed for pain Home Medications: Allopurinol 300 mg by mouth daily-may crush if needed Alprazolam 0.25 mg tablet by mouth nightly as needed for anxiety-swallow whole preferred, may crushif needed, monitor for sedation/blood pressure Cyclobenzaprine 10mg by mouth 3 times daily as needed for spasm-swallow whole preferred, may crush if needed. Monitor for sedation/dizziness Lisinopril 40 mg by mouth daily-may crush, monitor blood pressure Lisinopril-hydrochlorothiazide 20-25 mg STOP TAKING tablet take 1 tablet by mouth daily-may crush, monitor blood pressure Omeprazole 20 mg tablet by mouth daily- May NOT be crushed, may open capsule and sprinkle granules on food and take immediately, or change to powder ??? control pill?? -follow up on formulation, MAY TAKE AT DIRECTION OF SURGEON. Most control formulation pills can be crushed if it is a tablet but follow up with physician once you know the medication name/directions for more specific instructions Monitor blood pressure daily and record. Take with you to your next doctors office appointment:Callprimary are physician for systolic blood pressure (top number) greater than 180 or less than 100, Call for diastolic blood pressure (bottom number) greater that 100 or less than 60. Recommend [id number] 6 months follow up with primary care provider Do not start vitamins for one week.Start on day #7 when you start your full liquid diet . Start Protein water on your first day home Followup with Dr Coates as scheduled Followup with Priya Martin MD In one week for continued medical management NSAID'S: This includes all over the counter preparations containing a non- steroidal anti-inflammatory agent (i.e.: Motrin, Ibuprofen, Advil, Naprosyn, Aleve, Aspirin and Aspirin containing products, all combination products containing Ibuprofen or Naprosyn) Take at direction of your surgeon. SIGNS AND SYMPTOMS TO REPORT Contact your health care provider if you experience any of the following symptoms: fever greater than 100, redness from incision, or unrelieved nausea/vomiting. For Diabetic patients: Blood sugar consistently greater than 180 or less than 70. ACTIVITY Your activity level is: Per direction of surgeon You may return to work/school once you follow up with your doctor Weight restriction: less than [address] you are no longer taking pain medication You may shower Do not take any baths or submerge in water for 4-6 weeks or until instructed by your surgeon DIET Your diet is: clear liquid advanced as stated in your Bariatric diet manual WOUND CARE For your wound/incision: Shower daily Pain ball: Remove on January [address] Coates if There is redness, swelling, increasing pain in the wound Pus is coming from wound. You develop an unexplained oral temperature above 102?? F (38.9?? C) You notice a foul smell coming from the wound . If your unable to tolerate fluids Persistent nausea/vomiting * Attachments The following attachments cannot be sent through Care Everywhere. * ondansetron (oral) (Portuguese) * acetaminophen and hydrocodone (Portuguese) documented in this encounter Medications at Time of Discharge Medication Sig Dispensed Refills Start Date End Date HYDROcodone-acetaminoph en (HYCET) 7.5-325 mg/15 mL SolutionIndications:Pos t-op pain Take 15 mL by mouth every 6 hours as needed for severe pain. Max Daily Amount: 60 mL 300 mL 01/07/2022 ondansetron (ZOFRAN ODT) 4 mg Tablet, Rapid Dissolve Place 1 Tablet (4 mg) under tongue every 6 hours as needed for Nausea/Emesis or Nausea. Dissolve tablet on top of tongue, then swallow with saliva. 28 Tablet 01/07/2022 lisinopriL (PRINIVIL) 40 mg tablet Take 40 mg by mouth daily. allopurinoL (ZYLOPRIM) 300 mg tablet Take 300 mg by mouth daily. omeprazole magnesium (PriLOSEC) 20 mg Tablet, Delayed Release (E.C.) Take 20 mg by mouth daily. ALPRAZolam (XANAX) 0.25 mg tablet Take 0.25 mg by mouth nightly as needed for Anxiety. cyclobenzaprine (FLEXERIL) 10 mg tablet Take 10 mg by mouth 3 times daily as needed for Spasm. OTHER Provider please include Medication name, dose, route and frequency documented as of this encounter Progress Notes * Tiffany Huffman RN - 01/08/2022 1:00 PM CDT Discharge instructions given and reviewed with patient, all questions and concerns addressed. IV discontinued and catheter intact. * Cassi Orlando RN - 01/08/2022 10:30 AM CDT Discharge instructions and contents of discharge education folder were reviewed and discussed with patient. Included in that discussion were diet, activity, medications, use of Incentive Spirometer, incision care, removal of On Q ball and signs and symptoms of possible post-operative complications.Patient was given the opportunity to ask questions but she did not ask any questions. * Shazia Elias RN - 01/07/2022 3:30 PM CDT Pt arrives from PACU. Pt is A&Ox4. Reviewed IS instructions; pt return demonstration. Reviewed dietary restrictions and encouraged pt to ambulate. Assessed abd incisions with INSURANCE VERIFICATION REP, ONRoberto open and unclamped. Dressing CDI, no drainage. Incisions well approximated and dermabond intact. Pt orientated to call light, bed controls, TV, and restroom. Call light in reach. ZULEYKA UNDRESS & ASSESS ON Admission ON Transfer to different unit When off unit for greater than 2 hours (i.e., surgery/dialysis) Remove all existing dressings, assess ENTIRE skin surface (unless ordered differently by provider). Undress and Assess (Head to Toe Skin Assessment) performed by bedside nurse Darcie Mccray RN Does the patient have any of the following: skin breakdown or wounds new ostomy or skin integrity concerns with existing ostomy is the patient a paraplegic/ quadriplegic wound VAC (negative pressure wound therapy) No If yes, assess site(s) and document using the Avatar/LDA and Consult IP wound care. Patient arrived to this room with the following belongings or valuables clothing, cell phone, home cpap. All jewelry none was removed and sent home with family or security notified for storage. * Domonique Francis, PHARMACIST - 01/07/2022 2:38 PM CDT Pharmacist Bariatric Review 01/07/22 Allopurinol 300 mg by mouth daily-may crush if needed Alprazolam 0.25 mg tablet by mouth nightly as needed for anxiety-swallow whole preferred, may crushif needed, monitor for sedation/blood pressure Cyclobenzaprine 10mg by mouth 3 times daily as needed for spasm-swallow whole preferred, may crush if needed. Monitor for sedation/dizziness Lisinopril 40 mg by mouth daily-may crush, monitor blood pressure Lisinopril-hydrochlorothiazide 20-25 mg tablet take 1 tablet by mouth daily-may crush, monitor blood pressure Omeprazole 20 mg tablet by mouth daily- May NOT be crushed, may open capsule and sprinkle granules on food and take immediately, or change to powder ??? control pill?? -follow up on formulation, Most control formulation pills can be crushed if it is a tablet but follow up with physician once you know the medication name/directions for more specific instructions * Cassi Orlando RN - 12/25/2021 8:42 AM CDT Spoke to patient via phone to obtain her CPAP settings and they are 10. Patient asked to bring her home CPAP machine, mask and tubing with her on the day of her scheduled bariatric surgery on 01/07/22. documented in this encounter H&P Notes * Karl Coates MD - 01/07/2022 11:18 AM CDT [address] [address] [place] [address] History and Physical Patient: Joann Khalil : 1980 Date: 01/07/2022 HISTORY OF PRESENT ILLNESS: Patient is a 41 y.o. female scheduled for LVSG for Morbid Obesity. She was seen in the clinic and found to be an appropirate candidate for the procedure. The details of the preop discussion can be found in the clinic notes. Past Medical History: Diagnosis Date Anxiety GERD (gastroesophageal reflux disease) HTN (hypertension) Low back pain Obstructive sleep apnea cpap Wears contact lenses Past Surgical History: Procedure Laterality Date HX CHOLECYSTECTOMY HX EGD Medications Prior to Admission Medication Sig Dispense Refill Last Dose lisinopriL (PRINIVIL) 40 mg tablet Take 40 mg by mouth daily. lisinopril-hydroCHLOROthiazide (ZESTORETIC) 20-25 mg tablet Take 1 Tablet by mouth daily. allopurinoL (ZYLOPRIM) 300 mg tablet Take 300 mg by mouth daily. omeprazole magnesium (PriLOSEC) 20 mg Tablet, Delayed Release (E.C.) Take 20 mg by mouth daily. ALPRAZolam (XANAX) 0.25 mg tablet Take 0.25 mg by mouth nightly as needed for Anxiety. cyclobenzaprine (FLEXERIL) 10 mg tablet Take 10 mg by mouth 3 times daily as needed for Spasm. OTHER Provider please include Medication name, dose, route and frequency No Known Allergies Social History Socioeconomic History Marital status: Single Spouse name: Not on file Number of children: Not on file Years of education: Not on file Highest education level: Not on file Occupational History Not on file Tobacco Use Smoking status: Never Smokeless tobacco: Never Vaping Use Vaping Use: Never used Substance and Sexual Activity Alcohol use: Not Currently Drug use: Never Sexual activity: Not on file Other Topics Concern Not on file Social History Narrative Not on file Social Determinants of Health Financial Resource Strain: Not on file Food Insecurity: Not on file Transportation Needs: Not on file Physical Activity: Not on file Stress: Not on file Social Connections: Not on file Intimate Partner Violence: Not on file Housing Stability: Not on file No family history on file. REVIEW OF SYSTEMS: Per anesthesia notes PHYSICAL EXAM: Per anesthesia notes IMPRESSION: Obesity with comorbidities, good candidate for proposed procedure. PLAN: I discussed in depth with the patient her current clinical situation. Risks of the procedure were discussed in detail and the patient completed the online FRITZ program prior to today's procedure. She understands and wishes to proceed with the procedure. All of her questions were answered. Karl Coates MD documented in this encounter Consult Notes * Kaylan FairchildNENITA - 01/07/2022 5:06 PM CDTAssociated Order(s): IP CONSULT TO HOSPITALIST Hospitalist Consultation Note Patient Name: Joann Khalil [id number] Primary Care Doctor: Priya Martin MD Requesting Physician: Karl Coates MD Date of Admission: 01/07/2022 Date of Service: 01/07/2022 Reason for Consultation: Status post Laparoscopic vertical sleeve gastrectomy , secondary to morbidobesity by Dr. Coates hospitalist group was consulted for ongoing medical issues: GERD, hypertension,obstructive sleep apnea on CPAP, anxiety, and general medical exam. HPI: Patient is 41 y.o. female patient who is Status post Laparoscopic vertical sleeve gastrectomy, secondary to morbid obesity by Dr Coates. Hospitalist group was consulted for ongoing medical issues: GERD, hypertension, obstructive sleep apnea on CPAP, anxiety, and general medical exam. Past Medical History: Diagnosis Date Anxiety GERD (gastroesophageal reflux disease) HTN (hypertension) Low back pain Obstructive sleep apnea cpap Wears contact lenses Past Surgical History: Procedure Laterality Date HX CHOLECYSTECTOMY HX EGD IA LAP, PETROS RESTRICT PROC, LONGITUDINAL GASTRECTOMY N/A 01/07/2022 GASTRECTOMY LONGITUDINAL LAPAROSCOPIC ON-Q PAIN PUMP performed by Karl Coates MD at [facility] Current Medications: Medications Prior to Admission Medication Sig Dispense Refill Last Dose lisinopriL (PRINIVIL) 40 mg tablet Take 40 mg by mouth daily. 01/07/2022 lisinopril-hydroCHLOROthiazide (ZESTORETIC) 20-25 mg tablet Take 1 Tablet by mouth daily. allopurinoL (ZYLOPRIM) 300 mg tablet Take 300 mg by mouth daily. 01/07/2022 omeprazole magnesium (PriLOSEC) 20 mg Tablet, Delayed Release (E.C.) Take 20 mg by mouth daily. 01/07/2022 ALPRAZolam (XANAX) 0.25 mg tablet Take 0.25 mg by mouth nightly as needed for Anxiety. Past Week cyclobenzaprine (FLEXERIL) 10 mg tablet Take 10 mg by mouth 3 times daily as needed for Spasm. 01/07/2022 OTHER Provider please include Medication name, dose, route and frequency 01/07/2022 Medication Allergies:No Known Allergies No family history on file. Social History: Social History Tobacco Use Smoking status: Never Smokeless tobacco: Never Substance Use Topics Alcohol use: Not Currently ROS: Constitutional denies: chills, HEENT denies: nasal drainage, nasal congestion dysphagia or sore throat Respiratory denies: cough, or shortness of breath Cardiovascular denies: chest pain, Gastrointestinal/Abdominal denies: nausea, vomiting. Reports: Abdominal pain 05/31 Genitourinary denies: discharge, dysuria, frequency, hematuria, pain Musculoskeletal denies: back pain, joint swelling, muscle pain, Skin denies: dryness, rash Neurological/Psych denies: headache, numbness, tingling, weakness All other systems reviewed and negative; non-contributory for chief complaint. Physical Exam: BP (!) 156/92 (BP Location: Left arm, Patient Position (BP): Sitting) Pulse 82 Temp 98 ??F (36.7 ??C) (Oral) Resp 18 Ht 5' 8 (1.727 m) Wt (!) 147.6 kg (325 lb 6.4 oz) SpO2 94% BMI 49.48 kg/m?? Appearance: Morbidly obese, well-appearing, NAD, HEENT: Normocephalic, PERRLA. Neck: Supple, Cardiovascular: Regular rate and rhythm without murmurs, rubs or clicks. Pulmonary: Respirations are even and unlabored, lung sounds are clear bilaterally. GI / : Abdomen soft, non tender, non distended abdominal incision is well approximated no erythema or drainage, Tunneled abdominal wall catheter intact x2, Bowel sounds hypoactive. Extremities: No clubbing, cyanosis or edema. MS: Strength / ROM intact, no calf tenderness/SCDs intact Skin: Warm and dry, color normal Neurologic: Alert and oriented times 3. Cranial nerves 2-12 are intact. Data Base: Lab: Results for orders placed or performed during the hospital encounter of 01/07/22 (from the past 24 hour(s)) HCG QUALITATIVE, URINE Result Value Ref Range HCG QUAL URINE Negative Negative COLOR UA Yellow Pale to Dark Yellow CLARITY UA Clear Clear Labs reviewed on chart by business writer done prior to arrival Assessment:PLAN Morbid obesity Status post laparoscopic vertical sleeve gastrectomy,Tunneled abdominal wall catheter intact x2, a secondary to morbid obesity by Dr. Coates IV fluids/antiemetics/pain control using pain scale/incentive spirometer encourage frequently tolerating ice chips without difficulty/tolerated procedure well 2. DVT/GI prophylaxis Heparin/SCDs/H2 lois 3. Hypertension Placed on lisinopril in a.m. when tolerating p.o. Hold lisinopril/hydrochlorothiazide while on restricted diet We will add clonidine as needed with parameters and monitor 4. Obstructive sleep apnea Resume CPAP with home settings Monitor oximetry of vital signs 5. General medical exam This patient was discussed with Dr. Alcala and he agrees with the above plan. More than 35 minutes spent in the care of the patient today; more than 50% of time was spent in discussion of plan of care, going over lab and test results, expected course of disease, prognosis, counselling, discharge planning, and coordination of care. [facility] you [facility]. We will gladly follow the patient throughout their stay. NENITA Up This note was transcribed using Speech Recognition software. May contain unintended grammar and spelling errors. If there are any questions or major errors, please contact me. documented in this encounter OR Notes * Operative Report - Karl Coates MD - 01/07/2022 2:12 PM CDT Joann Khalil [id number] 01/07/2022 PRE OP DIAGNOSES: Morbid obesity with comorbidities POST OP DIAGNOSES: Morbid obesity with comorbidities INDICATION FOR PROCEDURE: This patient is a pleasant 41 y.o. year-old female suffering from morbid obesity and its comorbidities. After being seen in the clinic, she was found to be an appropriate candidate for a laparoscopicvertical sleeve gastrectomy. OPERATIONS PERFORMED: Laparoscopic vertical sleeve gastrectomy Laparoscopic placement of tunneled abdominal wall catheters x2 SURGEON: Karl Coates MD MEMBERSHIP ASSISTANT: None ANESTHESIA: GETA ESTIMATED BLOOD LOSS IN MLS: 50 cc COMPLICATIONS: None SPECIMEN: None PREOPERATIVE NOTE: The contemplated operative procedure, risks, benefits and alternatives to this procedure have been discussed with this patient and/or legal access services representative. The patient and/or legal access services representative acknowledge(s) understanding of the above and consent(s) to the procedure. OPERATIVE FINDINGS: Procedure performed laparoscopically as anticipated preoperatively. No evidence of kinking or twisting of the stomach and there appeared to be no evidence of ongoing oozing or bleeding at the conclusion of the case. OPERATIVE PROCEDURE: The patient was given intravenous antibiotics, sequential stockings, subcutaneous heparin in the preoperative area. After informed consent, the patient was transferred to the operating room, placed in a supine position, and underwent general anesthesia. An oral gastric calibration tube was placed. The abdomen was prepped and draped in the usual sterile fashion using ChloraPrep. Next a timeout wasobtained that revealed the correct patient, position, and laterality of the procedure. The procedure began with entry into the abdominal cavity using a 5 mm Opti-View trocar just to the patient's left of the umbilicus. Pneumoperitoneum thereafter was achieved. A circumferential view ofthe abdomen revealed no evidence of hepatic or pelvic pathology. Next a right upper quadrant 5 mm port, a right periumbilical 15 mm port, and a left upper quadrant 5 mm port were placed under direct laparoscopic vision. The liver was retracted manually throughout the case and the patient was positioned in reverse Trendelenburg position. The greater curvature was devascularized with the Sonicision and extended to the region of the spleen. The short gastric vessels were carefully taken down as dissection continued to the angle of His.Posterior attachments were freed up, the dissection was continued until about 5 cm of the left diaphragmatic darrin was well visualized. The pylorus was then identified and marked approximately 4 cm proximally. The greater curvature dissection was extended distally to that area. The sleeve dissectionwas completed and inspected and found to be hemostatic. Next the calibration tube was advanced to the antrum. The first staple line was performed using a linear stapler with Black load and SeamGuard. Subsequent staple loads were using the purple linear staplers with SeamGuard. Care was taken near the incisura to minimize encroachment, and the final staple load was fired approximately 1 cm away from the esophagus, to minimize injury to the esophagus. There was a technically good staple line with good hemostasis. The tube was slowly withdrawn, and there was no twisting or kinking of the gastric sleeve. The patient was flattened. There remained good hemostasis. A tunneled abdominal wall introducer wasplaced through a separate incision in the xiphoid region. It was tunneled through the subcutaneous fat, the abdominal wall fascia, into the preperitoneal plane along the right subcostal margin. A catheter was placed, the sheath was removed, and the catheter was irrigated to assure its patency. A sec ond tunneled abdominal wall catheter was placed through a separate incision in the subxiphoid region. It was tunneled through the subcutaneous fat, through the abdominal wall fascia into the preperitoneal plane along the left subcostal margin. A catheter was placed, the sheath was removed, and the catheter was irrigated to assure its patency. Both catheters had good patency, they were secured to the skin with Dermabond, Steri-Strips, and Tegaderm. Both catheters were placed under direct laparoscopic visualization. Next, The remnant stomach was then removed through the 15 mm trocar site under direct vision. The removed stomach was inspected and found to be without gross abnormality. There was no leakage or spillage within the abdomen. The 15 mm trocar site was closed with an 0 Vicryl figure of 8 suture using a suture passer. Then the pneumoperitoneum was released, as the trocars were removed, and there was no bleeding. The wound was irrigated, there was good hemostasis, and the skin edges were approximated using interrupted subcutaneous subcuticular 4-0 PDS suture. Dermabond was applied. The patient tolerated the procedure well, there were no complications, the patient was transferred to the recovery room awake and in stable condition. Karl Coates MD * Aniyah-OP - Kandi García RN - 01/07/2022 1:49 PM CDT STAPLE LOAD [id number] LOT# [id number] EXP. 08/21/26 * Aniyah-OP - Kandi García RN - 01/07/2022 1:27 PM CDT STAPLE LOADS [id number] LOT# [id number] EXP. 06/21/26 STAPLE LOADS [id number] LOT# [id number] EXP. 07/21/26 * Aniyah-OP - Yasmine Ayon RN - 01/04/2022 1:20 PM CDT Pre-Surgery Instructions Medication Instructions lisinopriL (PRINIVIL) 40 mg tablet Take morning of surgery with sip of water lisinopril-hydroCHLOROthiazide (ZESTORETIC) 20-25 mg tablet On hold for procedure allopurinoL (ZYLOPRIM) 300 mg tablet Take morning of surgery with sip of water omeprazole magnesium (PriLOSEC) 20 mg Tablet, Delayed Release (E.C.) Take morning of surgery with sip of water ALPRAZolam (XANAX) 0.25 mg tablet May take as needed (PRN) medication with sip of water cyclobenzaprine (FLEXERIL) 10 mg tablet May take as needed (PRN) medication with sip of water documented in this encounter Miscellaneous Notes * Care Plan - Christiane Salinas RN - 01/08/2022 8:16 AM CDT Pathway Day of Surgery - Current ([facility]DIS PW: BARIATRIC SURGERY - POST-OP) Fluid Management: (Maintain Hydration) Patient verbalizes understanding of the importance of hydration. Urine output equal to or greater than 30 mL/Hour. Outcome: Met Activity/Rehab: Patient will be able to perform ADLs and ambulate day of surgery with minimal assistance. Encourage ambulation within two hours after recovery from anesthesia. Outcome: Met Hemodynamics: Patient able to maintain SBP greater than 90 and less than 150 mmHg, HR greater than 50 and less than 100/min, Respirations greater than 10/min and less than 29/min, O2 sat greater thanor equal to 92%. Outcome: Met Pain Management: Patient verbalizes pain reduction and determines acceptable level/goal (0-10) thatwill allow for maximal function with ADLs. Outcome: Met Surgical Site: (Impaired Skin Integrity) Patient is free of signs of infection, (fever, redness, swelling, drainage) Wound and drain assessment (target </= 30 mL/day). Outcome: Met Nutrition: Patient verbalizes understanding of dietary restriction and modification. Patient verbalizes none or decreased nausea and vomiting. Outcome: Met Respiratory: Patient verbalizes understanding of and compliance with O2 devices. Outcome: Met Neurovascular: (DVT/VTE Prevention) Free of signs and symptoms of DVT/ VTE. Ambulation day of surgery. Encourage ambulation within two hours after recovery from anesthesia. Outcome: Met Discharge Planning: Discharge needs identified and patient verbalizes understanding of medications and follow-up. Outcome: Met Day 1 - Current ([facility]: Adult and Obstetrics) Patient, family, or healthcare designee is participating in individual care plan process Outcome: Met Patient, family, or healthcare designee understands side effects of medications Outcome: Met Problem: Pain, Potential/Actual Goal: Verbalizes/displays acceptable comfort level or baseline comfort level Description: Outcome: Variance Problem: Gastrointestinal Goal: Achieve optimal gastrointestinal function by discharge or maintain baseline function Outcome: Variance Problem: Medications Goal: Absence of/Reduce Fall Risk r/t Medications Description: Patient is a fall risk because of medications (i.e. - BP meds, CV/MARINE SPECIALIST meds, seizure meds, diuretics, pain meds, psych meds, current chemotherapy). Potential Interventions: 1. Orthostatic VS q day; educate to dangle before rising 2. Educate patient and family on how medications increase patient's fall risk (may make dizzy, lower BP, etc) 3. Do first dose education with all med/dosage changes. Document education 4.Reassess fall risk whenever a medication is changed/added (sleeping pill, pain med, BP med dose adjustment, etc) 5. Activate bed or chair alarm while in bed or up in chair 6. Limit combination of PRN meds whenever possible (i.e. - space out narcs and benzos) 7. Schedule frequent toileting for patients on diuretic to help prevent emergencies 8. Consult pharmacy to review meds and make recommendations (determine best timing, possible dosingadjustments, or identify other education that might be appropriate for patient) 9. Use floor mats next to bed and in front of chair when patient left unattended 10.Do not leave patient unattended while toileting or showering 11.Use appropriate assistive equipment (walker, shower chair, etc) 12. Include information on high risk medications, last doses, and patient tolerance in hand-off communication Outcome: Progressing Problem: Communication/Sensory Goal: Absence of/Reduce Fall Risk r/t Communication/Sensory Description: Patient is a fall risk due to sensory or communication issues. Potential Interventions: 1.Use alternative communication devices wherever necessary and when available (i.e. - picture board, note pad and pen, etc) 2. [employer] referral if applicable 3. Provide education in patient's primary language. Obtain skein yard drier and appropriate written materials. If patient refuses skein yard drier services have refusal waiver signed 4. Patients with visual deficits - place belongings and call light within field of vision, maintainsame setup in surroundings, narrate setup and activities to patient, provide necessary visual aids (i.e. Glasses) 5. Patients with hearing deficits - have patient repeat teaching back to ensure understanding 6. Patients with neuropathy - use appropriate assistive devices to aid mobility, and/or use appropriate footwear 7. Slow progressive position changes if patient experiencing dizziness Outcome: Progressing Problem: Infection Risk/Actual Goal: Infection Risk/Actual: Infection prevention, control, or resolution by discharge Description: Outcome: Progressing Problem: Safety/Fall Goal: Safety/Fall: Absence of fall, injury, harm during hospitalization Description: Outcome: Progressing Problem: Discharge Planning Goal: Identify discharge needs upon admission and through discharge Description: Outcome: Progressing Problem: Volume/Electrolyte Status Goal: Absence of/Reduce Fall Risk r/t Volume/Electrolyte Status Description: Patient is a fall risk due to volume/electrolyte status (i.e. - electrolyte imbalances, nausea/vomiting, NPO, IV fluids). Potential Interventions: 1. Ensure blood sugar is checked at appropriate intervals and insulin dosing is given as ordered 2. Provide patient with an emesis basin or vomit bag (may need more than one at bedside) 3. Assess length of IV and/or O2 tubing if applicable 4. Ensure IV fluids are given as ordered for NPO patients to maintain hydration 5. Administer medications for nausea and vomiting as needed Outcome: Progressing Problem: Cardiovascular Goal: Achieve optimal cardiovascular function by discharge or maintain baseline function Outcome: Progressing Problem: Nutrition/Endocrine Goal: Achieve optimal nutrition and fluid status to meet metabolic needs throughout hospitalization Outcome: Progressing Problem: Skin Goal: Maintain skin integrity and/or promote wound healing by discharge Outcome: Progressing * Care Plan - Corin Britton LCSW - 01/08/2022 8:02 AM CDT Clinical documentation reviewed. Comprehensive Discharge Planning Risk Assessment was completed. Pt underwent elective Laparoscopic vertical sleeve gastrectomy. Documentation Related to CDPA score CDPA Documentation Ambulation: independent Transferring: independent Toileting: independent Bathing: independent Dressing: independent Eating: independent Communication: understands/communicates w/o difficulty Weight-Bearing Status: no weight-bearing restrictions Living Arrangements: Lives alone Total Score of 9 or below does not identify immediate needs for discharge. CDPA Risk Score Total Score: 3 3 Prior Living Status Criteria that do not apply: Self-reported walking limitation Disability Age Please place consult if needs for discharge are identified. Care Management will continue to follow for discharge planning. Corin Britton LCSW [facility] Management [phone] * Care Plan - Erika Ritter RN - 01/07/2022 3:20 PM CDT Potential for nausea and vomiting related to surgical intervention and/or anesthesia. Interventions: Assess for nausea, vomiting.Administer measures to reduce and comfort pt (ie: encourage slow deep breathing, cool cloth to forehead, gradual position changes). Administer medication ifordered by physician. Expected outcome:Verbalization of decreased nausea and reduced or absent episodes of vomiting. Outcome met: Pt denies nausea. * Care Plan - Rosa Maria Underwood RN - 01/07/2022 11:41 AM CDT Knowledge deficit related to procedure/environment Interventions: Assess learning needs and willingness to learn; give clear, concise explanations of the environment and sequence of events surrounding the periop experience; address patient/family questions and concerns; provide teaching as indicated, provide teaching related to postoperative pain assessment utilizing pain scales Expected Outcome: Patient verbalizes or demonstrates awareness/understanding of surgery and perioperative experience Outcome Met: Discussed pre op protocols, questions answered, verbalized understanding. documented in this encounter Plan of Treatment Not on file documented as of this encounter Procedures Procedure Name Priority Date/Time Associated Diagnosis Comments CBC WITHOUT DIFFERENTIAL Routine 01/08/2022 5:21 AM CDT HEMOGLOBIN A1C Routine 01/08/2022 5:21 AM CDT BASIC METABOLIC PANEL Routine 01/08/2022 5:21 AM CDT IA LAPS GSTRC RSTRICTIV PX LONGITUDINAL GASTRECTOMY 01/07/2022 11:45 AM CDT Morbid (severe) obesity due to excess calories Case Notes ON-Q PAIN PUMP CODE 18 [id number] 12/18/2021 KMM HCG QUALITATIVE, URINE Stat 01/07/2022 11:13 AM CDT documented in this encounter Results * (ABNORMAL) HEMOGLOBIN A1C (01/08/2022 5:21 AM CDT) HEMOGLOBIN A1C 7.2(H) <=5.6 % 01/08/2022 6:11 AM CDT [facility] EST. AVG GLUCOSE, A1C 160 mg/dL 01/08/2022 6:11 AM CDT [facility] Blood Venipuncture / Unknown 01/08/2022 5:21 AM CDT 01/08/2022 5:55 AM CDT Narrative [facility] - 01/08/2022 6:11 AM CDT HGB A1C INTERPRETATION NORMAL: ? <5.7% PRE-DIABETES: 5.7 - 6.4% DIABETES: ? 6.5% OR GREATER Karl Coates MD CHEMISTRY ORDERABLES [facility] [place] CLIA # [id number] [address] [place] [id number] * (ABNORMAL) BASIC METABOLIC PANEL (01/08/2022 5:21 AM CDT) SODIUM 135(L) 136 - 145 mmol/L 01/08/2022 5:56 AM T [facility] [place] POTASSIUM 4.2 3.5 - 5.1 mmol/L 01/08/2022 5:56 AM T [facility] [place] CHLORIDE 101 98 - 107 mmol/L 01/08/2022 5:56 AM [facility] [place] CO2 19(L) 22 - 29 mmol/L 01/08/2022 5:56 AM [facility] [place] CALCIUM 9.5 8.6 - 10.0 mg/dL 01/08/2022 5:56 AM [facility] [place] BUN 5(L) 6 - 20 mg/dL 01/08/2022 5:56 AM [facility] [place] CREATININE 0.56 0.51 - 0.95 mg/dL 01/08/2022 5:56 AM [facility] [place] GLUCOSE 165(H) 74 - 99 mg/dL 01/08/2022 5:56 AM [facility] [place] GFR >60 >=60 mL/min/1.7 3 sq meter 01/08/2022 5:56 AM [facility] [place] Comment:eGFR calculated with 2020 CKD-EPI equation. Vegetarian diet, extremely high or low muscle mass, and may affect results. Cystatin C with Glomerular Filtration Rate is a suitable alternative for these patients. ANION GAP 15 5 - 15 mmol/L 01/08/2022 5:56 AM T [facility] [place] Blood Venipuncture / Unknown 01/08/2022 5:21 AM CDT 01/08/2022 5:44 AM CDT Karl Coates MD CHEMISTRY ORDERABLES [facility] [place] CLIA # [id number] [address] [place] [address] * (ABNORMAL) CBC WITHOUT DIFFERENTIAL (01/08/2022 5:21 AM CDT) WBC 16.0(H) 4.0 - 11.0 K/uL 01/08/2022 5:35 AM CDT [facility] [place] RBC 4.09(L) 4.20 - 5.40 M/uL 01/08/2022 5:35 AM CDT [facility] [place] HEMOGLOBIN 11.5(L) 11.9 - 15.1 g/dL 01/08/2022 5:35 AM CDT [facility] [place] HEMATOCRIT 35.2(L) 38.0 - 47.0 % 01/08/2022 5:35 AM CDT [facility] [place] MCV 86.1 80.0 - 98.0 fL 01/08/2022 5:35 AM CDT [facility] [place] MCH 28.1 26.0 - 34.0 pg 01/08/2022 5:35 AM CDT [facility] [place] MCHC 32.7 31.0 - 37.0 g/dL 01/08/2022 5:35 AM CDT [facility] [place] PLATELETS 267 150 - 400 K/uL 01/08/2022 5:35 AM CDT [facility] [place] MPV 9.7 8.5 - 12.5 fL 01/08/2022 5:35 AM CDT [facility] [facility] [place] RDW 14.0 11.5 - 14.5 % 01/08/2022 5:35 AM CDT [facility] [place] RDW-STDEV 43.4 34.0 - 54.0 fL 01/08/2022 5:35 AM CDT [facility] [place] Blood Venipuncture / Unknown 01/08/2022 5:21 AM CDT 01/08/2022 5:33 AM CDT Karl Coates MD HEMATOLOGY ORDERABLE S [facility] [employer] [facility] CLIA # [id number] [facility] [address] [place] [address] * HCG QUALITATIVE, URINE (01/07/2022 11:13 AM CDT) HCG QUAL URINE Negative Negative 01/07/2022 11:27 AM CDT [facility] [place] COLOR UA Yellow Pale to Dark Yellow 01/07/2022 11:27 AM CDT [facility] [employer] [facility] [place] CLARITY UA Clear Clear 01/07/2022 11:27 AM CDT [facility] [employer] [facility] [place] Urine URINE SPECIMEN OBTAINED BY CLEAN CATCH PROCEDURE / Unknown Collection / Unknown 01/07/2022 11:13 AM CDT 01/07/2022 11:22 AM CDT Narrative [facility] [place] - 01/07/2022 11:27 AM CDT hCG sensitive to as little as 20 mIU/mL for urine Shailesh Ortega DO URINE ORDERABLES Performing Organization Address [facility]/State/ZIP Co de Phone Number [facility] [employer] [facility] CLIA # [id number] [facility] [address] [place] [address] documented in this encounter Visit Diagnoses Diagnosis Post-op pain- Primary Other acute postoperative pain documented in this encounter Administered Medications Inactive Administered Medications - up to 3 most recent administrations Medication Order MAR Action Action Date Dose Rate Site acetaminophen (OFIRMEV) 10 mg/mL injection 1,000 mg 1,000 mg, IV, ONE TIME ONLY, 1 dose, On 01/07/22 at 1930, Routine, Post-op - Floor New Bag 01/07/2022 7:37 PM CDT 1,000 mg 400 mL/hr acetaminophen (OFIRMEV) 10 mg/mL injection 1,000 mg 1,000 mg, IV, ONE TIME ONLY, 1 dose, On 01/08/22 at 0130, Routine, Post-op - Floor New Bag 01/08/2022 2:10 AM CDT 1,000 mg 400 mL/hr bupivacaine PF (SENSORCAINE MPF) 2.5 mg/mL (0.25%) 270 mL unilateral fixed rate On-Q pump Infiltration, CONTINUOUS, Starting on Fri01/07/22 at 1100, Until Fri01/08/22 at 1659, 270 mL, Stat, Pre-op, USE: Incisional Infiltration, FILL CAPACITY: 270-335 mL, LUMEN QTY: Dual Lumen, RATE: 4 mL/hr (2 mL/lumen) New Bag 01/07/2022 2:36 PM CDT 6 mL/hr 6 mL/hr ceFAZolin (ANCEF,KEFZOL) 2,000 mg in sodium chloride 0.9% 50 mL IVPB (MBP) 2,000 mg, IV, POST-PROCEDURE Q 8 HOURS, 2 doses, First dose on Fri01/07/22 at 2100, Last dose on Fri01/08/22 at 0500, Routine, Post-op - Floor, Antibiotic Indication: Surgical prophylaxis New Bag 01/08/2022 5:10 AM CDT 2,000 mg 118 mL/hr New Bag 01/07/2022 9:17 PM CDT 2,000 mg 118 mL/hr cloNIDine HCL (CATAPRES) tablet 0.1 mg 0.1 mg, Oral, TWO TIMES DAILY PRN, Starting on Fri01/07/22 at 1736, Until Fri01/08/22 at 1659, Blood Pressure, hypertenion, Routine famotidine PF (PEPCID) 20 mg/2 mL injection 20 mg 20 mg, IV, PRE-PROCEDURE ONCE, 1 dose, Starting on Fri01/07/22 at 1050, Until Fri01/07/22 at 1147, Stat, Pre-op Given 01/07/2022 11:47 AM CDT 20 mg famotidine PF (PEPCID) 20 mg/2 mL injection 20 mg 20 mg, IV, TWO TIMES DAILY, First dose on Fri01/07/22 at 2100, Until Discontinued, Routine, Post-op - Floor Given 01/08/2022 8:00 AM CDT 20 mg Given 01/07/2022 9:18 PM CDT 20 mg fentaNYL PF (SUBLIMAZE) 50 mcg/mL injection 25 mcg 25 mcg, IV, POST-PROCEDURE Q 3 MINUTES PRN, 5 doses, Starting on Fri01/07/22 at 1230, Until Fri01/07/22 at 1531, Pain, Routine, PACU Given 01/07/2022 3:11 PM CDT 25 mcg Given 01/07/2022 3:08 PM CDT 25 mcg heparin injection 5,000 Units 5,000 Units, subCUT, PRE-PROCEDURE ONCE, 1 dose, Starting on Fri01/07/22 at 1050, Until Fri01/07/22 at 1147, Stat, Pre-op Given 01/07/2022 11:47 AM CDT 5,000 Units Abdomen, Right Lower Quadrant heparin injection 5,000 Units 5,000 Units, subCUT, POST-PROCEDURE Q 8 HOURS, First dose on Fri01/08/22 at 0230, Until Discontinued, Routine, Post-op - Floor Given 01/08/2022 11:47 AM CDT 5,000 Units Abdomen, Left Upper Quadrant Given 01/08/2022 2:10 AM CDT 5,000 Units A bdomen, Left Lower Quadrant ketorolac (TORADOL) injection 10 mg 10 mg, IV, EVERY 6 HOURS PRN, Starting on Fri01/07/22 at 1422, Until Fri01/08/22 at 1421, Other (See Comment), Cramping or aching pain, Routine, Post-op - Floor Given 01/08/2022 11:55 AM CDT 10 mg Given 01/08/2022 2:14 AM CDT 10 mg Given 01/07/2022 3:39 PM CDT 10 mg lactated ringers bolus solution 1,000 mL 1,000 mL, IV, ONE TIME ONLY, 1 dose, On Fri01/08/22 at 0645, at 500 mL/hr, Administer over 2 Hours, Routine New Bag 01/08/2022 8:04 AM CDT 1,000 mL 500 mL/hr lactated ringers bolus solution 2,000 mL 2,000 mL, IV, PRE-PROCEDURE ONCE, 1 dose, Starting on Fri01/07/22 at 1050, Until Fri01/07/22 at 1246, at 2,000 mL/hr, Administer over 60 Minutes, Stat, Pre-op New Bag 01/07/2022 11:46 AM CDT 2,000 mL 2000 mL/ hr lisinopriL (PRINIVIL) tablet 40 mg 40 mg, Oral, DAILY, First dose on Fri01/08/22 at 0900, Until Discontinued, Routine, Previous Med: lisinopriL (PRINIVIL) 40 mg tablet - Orig Sig - Take 40 mg by mouth daily. Given 01/08/2022 8:00 AM CDT 40 mg metoclopramide (REGLAN) 5 mg/mL injection 10 mg 10 mg, IV, EVERY 6 HOURS PRN, Starting on Fri01/07/22 at 1422, Until Fri01/08/22 at 1659, Nausea/Emesis, Routine, Post-op - Floor Given 01/07/2022 3:39 PM CDT 10 mg metroNIDAZOLE (FLAGYL) IVPB 500 mg 500 mg, IV, POST-PROCEDURE Q 8 HOURS, 2 doses, First dose on Fri01/07/22 at 2130, Last dose on Fri01/08/22 at 0530, Routine, Post-op - Floor, Antibiotic Indication: Surgical prophylaxis New Bag 01/08/2022 6:13 AM CDT 500 mg 100 mL/hr New Bag 01/07/2022 10:14 PM CDT 500 mg 100 mL/hr morphine 4 mg/mL injection 2 mg 2 mg, IV, EVERY 4 HOURS PRN, Starting on Fri01/07/22 at 1542, Until Fri01/08/22 at 1659, Pain (See admin instructions), Routine, Post-op - Floor ondansetron (ZOFRAN) 4 mg/2 mL injection 4 mg 4 mg, IV, POST-PROCEDURE ONCE PRN, 1 dose, Starting on Fri01/07/22 at 1230, Until Fri01/07/22 at 1445, Nausea/Emesis, Routine, PACU Given 01/07/2022 2:45 PM CDT 4 mg potassium CHLORIDE in dextrose 5% - NaCl 0.45% 1,000 mL 20 mEq/L infusion IV, at 150 mL/hr, CONTINUOUS, Starting on Fri01/07/22 at 1430, Until Fri01/08/22 at 0640, Routine, Post-op - Floor Restarted 01/08/2022 7:13 AM CDT 150 mL /hr Restarted 01/08/2022 5:40 AM CDT 150 mL/hr Restarted 01/08/2022 2:25 AM CDT 150 mL/hr potassium CHLORIDE in NaCl 0.9% 1,000 mL 20 mEq/L infusion IV, at 150 mL/hr, CONTINUOUS, Starting on Fri01/08/22 at 0645, Until Fri01/08/22 at 1659, Routine prochlorperazine (COMPAZINE) injection 5 mg 5 mg, IV, POST-PROCEDURE ONCE PRN, 1 dose, Starting on Fri01/07/22 at 1230, Until Fri01/07/22 at 1521, Nausea/Emesis, Routine, PACU Given 01/07/2022 3:21 PM CDT 5 mg scopolamine (TRANSDERM-SCOP) 1 mg/72 hr transdermal patch 1 Patch 1 Patch, Transdermal, ONE TIME ONLY, 1 dose, On Fri01/07/22 at 1100, Stat, Pre-op Applied 01/07/2022 11:47 AM CDT 1 Patch Mastoid,Right sodium chloride 0.9% bolus solution 1,000 mL 1,000 mL, IV, ONE TIME ONLY, 1 dose, On Fri01/08/22 at 0645, at 500 mL/hr, Administer over 2 Hours, Routine New Bag 01/08/2022 10:11 AM CDT 1,000 mL 500 mL/hr documented in this encounter Active and Recently Administered Medications Times are shown in CDT. Scheduled Medication Order 01/06/2022 01/07/2022 01/08/2022 acetaminophen (OFIRMEV) 10 mg/mL injection 1,000 mg (COMPLETED) 1,000 mg, IV, ONE TIME ONLY, 1 dose, On Fri01/07/22 at 1930, Routine, Post-op - Floor 1937 (New Bag - Provider: Christiane Salinas RN)1952 (Stopped - Provider: Christiane Salinas RN) acetaminophen (OFIRMEV) 10 mg/mL injection 1,000 mg (COMPLETED) 1,000 mg, IV, ONE TIME ONLY, 1 dose, On Fri01/08/22 at 0130, Routine, Post-op - Floor 0210 (New Bag - Prov ider: Christiane Salinas RN)0225 (Stopped - Provider: Christiane Salinas RN) ceFAZolin (ANCEF,KEFZOL) 2,000 mg in sodium chloride 0.9% 50 mL IVPB (MBP) (COMPLETED) 2,000 mg, IV, PRE-PROCEDURE ONCE, 1 dose, Starting on Fri01/07/22 at 1050, Until Fri01/07/22 at 1336, Stat, Pre-op, Antibiotic Indication: Surgical prophylaxis 1306 (New Bag - Provider: Fay Cevallos CRNA)1336 (Stopped - Provider: Fay Cevallos CRNA) ceFAZolin (ANCEF,KEFZOL) 2,000 mg in sodium chloride 0.9% 50 mL IVPB (MBP) (COMPLETED)(Linked Group 1) 2,000 mg, IV, POST-PROCEDURE Q 8 HOURS, 2 doses, First dose on Fri01/07/22 at 2100, Last dose on Fri01/08/22 at 0500, Routine, Post-op - Floor, Antibiotic Indication: Surgical prophylaxis 2116 (New Bag - Provider: Christiane Salinas RN)2147 (Stopped - Provider: Christiane Salinas RN)2147 (Stopped - Provider: Christiane Salinas RN) 0510 (New Bag - Provider: Christiane Salinas RN)0540 (Stopped - Provider: Christiane Salinas RN) famotidine PF (PEPCID) 20 mg/2 mL injection 20 mg (COMPLETED) 20 mg, IV, PRE-PROCEDURE ONCE, 1 dose, Starting on Fri01/07/22 at 1050, Until Fri01/07/22 at 1147, Stat, Pre-op 1147 (Given - Provider: Rosa Maria Underwood, MARY) famotidine PF (PEPCID) 20 mg/2 mL injection 20 mg 20 mg, IV, TWO TIMES DAILY, First dose on Fri01/07/22 at 2100, Until Discontinued, Routine, Post-op - Floor 2117 (Given - Provider: Christiane Salinas RN) 0800 (Given - Provider: Tiffany Huffman RN) heparin injection 5,000 Units (COMPLETED) 5,000 Units, subCUT, PRE-PROCEDURE ONCE, 1 dose, Starting on Fri01/07/22 at 1050, Until Fri01/07/22 at 1147, Stat, Pre-op 1147 (Given - Provider: Rosa Maria Underwood, MARY) heparin injection 5,000 Units 5,000 Units, subCUT, POST-PROCEDURE Q 8 HOURS, First dose on 10/18/22 at 0230, Until Discontinued, Routine, Post-op - Floor 0210 (Given - Provid er: Christiane Salinas RN)1147 (Given - Provider: Tiffany Huffman RN) lactated ringers bolus solution 1,000 mL (COMPLETED) 1,000 mL, IV, ONE TIME ONLY, 1 dose, On Fri01/08/22 at 0645, at 500 mL/hr, Administer over 2 Hours, Routine 0804 (New Bag - Prov ider: Tiffany Huffman RN)1004 (Stopped - Provider: Tiffany Huffman RN) lactated ringers bolus solution 2,000 mL (COMPLETED) 2,000 mL, IV, PRE-PROCEDURE ONCE, 1 dose, Starting on Fri01/07/22 at 1050, Until Fri01/07/22 at 1246, at 2,000 mL/hr, Administer over 60 Minutes, Stat, Pre-op 1146 (New Bag - Provider: Rosa Maria Underwood RN)1246 (Stopped - Provider: Darcie Barriga RN) lisinopriL (PRINIVIL) tablet 40 mg 40 mg, Oral, DAILY, First dose on Fri01/08/22 at 0900, Until Discontinued, Routine, Previous Med: lisinopriL (PRINIVIL) 40 mg tablet - Orig Sig - Take 40 mg by mouth daily. 0800 (Given - Provid er: Tiffany Huffman RN) metroNIDAZOLE (FLAGYL) IVPB 500 mg (COMPLETED) 500 mg, IV, ONE TIME ONLY, 1 dose, On Fri01/07/22 at 1100, Stat, Pre-op, Antibiotic Indication: Surgical prophylaxis 1328 (Given - Provider: Fay Cevallos CRNA)1428 (Stopped - Provider: Fay Cevallos CRNA) metroNIDAZOLE (FLAGYL) IVPB 500 mg (COMPLETED)(Linked Group 1) 500 mg, IV, POST-PROCEDURE Q 8 HOURS, 2 doses, First dose on Fri01/07/22 at 2130, Last dose on Fri01/08/22 at 0530, Routine, Post-op - Floor, Antibiotic Indication: Surgical prophylaxis 2214 (New Bag - Provider: Melania Thakur RN)2314 (Stopped - Provider: Christiane Salinas RN) 0613 (New Bag - Provider: Christiane Salinas RN)0713 (Stopped - Provider: Tiffany Huffman RN) naloxone (NARCAN) 0.4 mg/mL injection 0.1 mg 0.1 mg, IV, SEE ADMIN INSTRUCTIONS, Starting on Fri01/07/22 at 1422, Until Fri01/08/22 at 1659, Routine, Post-op - Floor scopolamine (TRANSDERM-SCOP) 1 mg/72 hr transdermal patch 1 Patch (CANCELED) 1 Patch, Transdermal, ONE TIME ONLY, 1 dose, On Fri01/07/22 at 1100, Stat, Pre-op 1147 (Applied - Provider: Rosa Maria Underwood, MARY) 1454 (Due: Removed - Provider: PROVIDER, DISCHARGE PATIENT - Comment: Time automatically adjusted from order being discontinued) sodium chloride 0.9% bolus solution 1,000 mL (COMPLETED) 1,000 mL, IV, ONE TIME ONLY, 1 dose, On Fri01/08/22 at 0645, at 500 mL/hr, Administer over 2 Hours, Routine 1011 (New Bag - Prov ider: Tiffany Huffman RN)1211 (Stopped - Provider: Tiffany Huffman RN) Continuous Medication Order 01/06/2022 01/07/2022 01/08/2022 bupivacaine PF (SENSORCAINE MPF) 2.5 mg/mL (0.25%) 270 mL unilateral fixed rate On-Q pump Infiltration, CONTINUOUS, Starting on Fri01/07/22 at 1100, Until Fri01/08/22 at 1659, 270 mL, Stat, Pre-op, USE: Incisional Infiltration, FILL CAPACITY: 270-335 mL, LUMEN QTY: Dual Lumen, RATE: 4 mL/hr (2 mL/lumen) 1436 (New Bag - Provider: Erika Ritter RN) lactated ringers infusion (CANCELED) IV, at 125 mL/hr, PRE-PROCEDURE CONTINUOUS, Starting on Fri01/07/22 at 1100, Until Fri01/07/22 at 1531, Stat, Pre-op 1256 (New Bag - Provider: Fay Cevallos CRNA)1429 (Fluid Volume - Provider: Radha Elizabeth CRNA) 0804 (Stopped - Provider: Tiffany Huffman RN) potassium CHLORIDE in dextrose 5% - NaCl 0.45% 1,000 mL 20 mEq/L infusion (CANCELED) IV, at 150 mL/hr, CONTINUOUS, Starting on Fri01/07/22 at 1430, Until Fri01/08/22 at 0640, Routine, Post-op - Floor 1430 (Canceled Entry - Provider: Darcie Barriga RN)1538 (New Bag - Provider: Darcie Barriga RN)1937 (Paused - Provider: Christiane Salinas RN)1952 (Restarted - Provider: Christiane Salinas RN)2117 (Paused - Provider: Christiane Salinas RN)2147 (Restarted - Provider: Christiane Salinas RN)2214 (Paused - Provider: Christiane Salinas RN)2315 (Restarted - Provider: Christiane Salinas RN) 0005 (Rate Change - Provider: Christiane Salinas RN)0022 (Stopped - Provider: Christiane Salinas RN)0022 (New Bag - Provider: Christiane Salinas RN)0210 (Paused - Provider: Christiane Salinas RN)0225 (Restarted - Provider: Christiane Salinas RN)0510 (Paused - Provider: Christiane Salinas RN)0540 (Restarted - Provider: Christiane Salinas RN)0600 (Stopped - Provider: Tiffany Huffman RN)0613 (Paused - Provider: Christiane Salinas RN)0713 (Restarted - Provider: Christiane Salinas RN)0802 (Stopped - Provider: Christiane Salinas RN) potassium CHLORIDE in NaCl 0.9% 1,000 mL 20 mEq/L infusion IV, at 150 mL/hr, CONTINUOUS, Starting on Fri01/08/22 at 0645, Until Fri01/08/22 at 1659, Routine 0645 (Canceled Entry - Provider: Tiffany Huffman RN)1200 (Not Given - Provider: Tiffany Huffman RN - Reason: Other - See Comment - Comment: Patient discharging) PRN Medication Order 01/06/2022 01/07/2022 01/08/2022 bupivacaine PF (SENSORCAINE MPF) 2.5 mg/mL (0.25%) injection (CANCELED) INTRA-PROCEDURE PRN, Starting on Fri01/07/22 at 1322, Until Fri01/07/22 at 1431, Routine, Intra-op 1322 (Given - Provider: Karl Coates MD) cloNIDine HCL (CATAPRES) tablet 0.1 mg 0.1 mg, Oral, TWO TIMES DAILY PRN, Starting on Fri01/07/22 at 1736, Until Fri01/08/22 at 1659, Blood Pressure, hypertenion, Routine fentaNYL PF (SUBLIMAZE) 50 mcg/mL injection 25 mcg (CANCELED) 25 mcg, IV, POST-PROCEDURE Q 3 MINUTES PRN, 5 doses, Starting on Fri01/07/22 at 1230, Until Fri01/07/22 at 1531, Pain, Routine, PACU 1508 (Given - Provider: Erika Ritter RN)1511 (Given - Provider: Erika Ritter RN) HYDROcodone-acetaminophen (HYCET) 7.5-325 mg/15 mL oral solution 15 mL 15 mL (7.5 mg), Oral, EVERY 4 HOURS PRN, Starting on Fri01/08/22 at 0730, Until Fri01/08/22 at 1659, Pain (See admin instructions), Routine, Post-op - Floor HYDROcodone-acetaminophen (HYCET) 7.5-325 mg/15 mL oral solution 15 mL 15 mL (7.5 mg), Oral, EVERY 4 HOURS PRN, Starting on Fri01/08/22 at 0730, Until Fri01/08/22 at 1659, Pain (See admin instructions), Routine, Post-op - Floor HYDROmorphone (DILAUDID) 2 mg/mL injection 0.3 mg 0.3 mg, IV, EVERY 4 HOURS PRN, Starting on Fri01/07/22 at 1422, Until Fri01/08/22 at 1659, Pain (See admin instructions), Routine, Post-op - Floor HYDROmorphone (DILAUDID) 2 mg/mL injection 0.6 mg 0.6 mg, IV, EVERY 30 MINUTES PRN, Starting on Fri01/07/22 at 1422, Until Fri01/08/22 at 1659, Pain (See admin instructions), Routine, Post-op - Floor ketorolac (TORADOL) injection 10 mg 10 mg, IV, EVERY 6 HOURS PRN, Starting on Fri01/07/22 at 1422, Until Fri01/08/22 at 1421, Other (See Comment), Cramping or aching pain, Routine, Post-op - Floor 1539 (Given - Provider: Darcie Barriga RN) 0214 (Given - Provider: Christiane Salinas RN)1155 (Given - Provider: Tiffany Huffman RN) lactated ringers irrigation solution (CANCELED) INTRA-PROCEDURE PRN, Starting on Fri01/07/22 at 1404, Until Fri01/07/22 at 1431, Intra-op 1404 (Given - Provider: Karl Coates MD) magnesium hydroxide (MILK OF MAGNESIA) oral suspension 30 mL 30 mL, Oral, DAILY PRN, Starting on Fri01/07/22 at 1422, Until Fri01/08/22 at 1659, Constipation, Routine, Post-op - Floor metoclopramide (REGLAN) 5 mg/mL injection 10 mg 10 mg, IV, EVERY 6 HOURS PRN, Starting on Fri01/07/22 at 1422, Until Fri01/08/22 at 1659, Nausea/Emesis, Routine, Post-op - Floor 1539 (Given - Provider: Darcie Barriga RN) morphine 4 mg/mL injection 2 mg 2 mg, IV, EVERY 4 HOURS PRN, Starting on Fri01/07/22 at 1542, Until Fri01/08/22 at 1659, Pain (See admin instructions), Routine, Post-op - Floor ondansetron (ZOFRAN) 4 mg/2 mL injection 4 mg (COMPLETED) 4 mg, IV, POST-PROCEDURE ONCE PRN, 1 dose, Starting on Fri01/07/22 at 1230, Until Fri01/07/22 at 1445, Nausea/Emesis, Routine, PACU 1445 (Given - Provider: Erika Ritter RN) ondansetron (ZOFRAN) 4 mg/2 mL injection 4 mg 4 mg, IV, EVERY 6 HOURS PRN, Starting on Fri01/07/22 at 1422, Until Fri01/08/22 at 1659, Nausea/Emesis, Routine, Post-op - Floor ondansetron (ZOFRAN) 4 mg/2 mL injection 4 mg 4 mg, IV, EVERY 6 HOURS PRN, Starting on Fri01/07/22 at 1422, Until Fri01/08/22 at 1659, Nausea/Emesis, Routine, Post-op - Floor prochlorperazine (COMPAZINE) injection 5 mg (COMPLETED) 5 mg, IV, POST-PROCEDURE ONCE PRN, 1 dose, Starting on Fri01/07/22 at 1230, Until Fri01/07/22 at 1521, Nausea/Emesis, Routine, PACU 1521 (Given - Provider: Erika Ritter RN) sodium chloride 0.9 % irrigation solution (CANCELED) INTRA-PROCEDURE PRN, Starting on Fri01/07/22 at 1322, Until Fri01/07/22 at 1431, Routine, Intra-op 1322 (Given - Provider: Karl Coates MD) Linked Groups Order Group 1: ceFAZolin (ANCEF,KEFZOL) 2,000 mg in sodium chloride 0.9% 50 mL IVPB (MBP) (COMPLETED)Jump to med 2,000 mg, IV, POST-PROCEDURE Q 8 HOURS, 2 doses, First dose on Fri01/07/22 at 2100, Last dose on Fri01/08/22 at 0500, Routine, Post-op - Floor, Antibiotic Indication: Surgical prophylaxis And metroNIDAZOLE (FLAGYL) IVPB 500 mg (COMPLETED)Jump to med 500 mg, IV, POST-PROCEDURE Q 8 HOURS, 2 doses, First dose on Fri01/07/22 at 2130, Last dose on Fri01/08/22 at 0530, Routine, Post-op - Floor, Antibiotic Indication: Surgical prophylaxis documented in this encounter Care Teams Forest[employer] Relationship Specialty Start Date End Date Priya Martin MD PCP - General Family Practice 12/21/21 documented as of this encounter
--- OUTSIDE RECORDS SUMMARY | 2024-03-20 05:00 | XMS_ITS | Encounter Summary ---
Author Organization [facility] Address [address] [place] [address] Care Team Providers Care Vocational Ed Instructor Name Role Phone Priya Martin MD Primary Care Provider [phone] Reason for Visit * Auth/Cert Specialty Diagnoses / Procedures Referred By Iban araujo Referred To Contact Perioperative Diagnoses Morbid (severe) obesity due to excess calories Procedures RI LAP, PETROS RESTRICT PROC, LONGITUDINAL GASTRECTOMY RI ABDOMEN SURGERY PROC UNLISTED GASTRECTOMY LONGITUDINAL LAPAROSCOPIC ON-Q PAIN PUMP [facility] Operating [facility] [facility] [address] [place] [address] Referral ID Status Reason Start Date Expiration Date Visits Re quested Visits Authorized [id number] 1 1 Encounter Details Date Type Department Care Team (Late st Contact Info) Description 01/07/2022 12:56 PM CDT Anesthesia Event [facility] Operating Room [address] [address] Shailesh Ortega DO [address] [address] Alma Brown CRNA [address] [id number] Anesthesia Record Procedure Summary Procedure Name Responsible Anesthesiologist Anesthesia Start Time Anesthesia Stop Time GASTRECTOMY LONGITUDINAL LAPAROSCOPIC ON-Q PAIN PUMP (Abdomen) Shailesh Ortega DO 01/07/22 1256 01/07/22 1435 Events Date Time Event Comment 01/07/2022 1142 AN Equip Check Anesthesia eq uipment and materials checked in accordance with local policy. 1233 1256 An Start 1256 In Room This event disp lays the In Room time documented in the Surgical Log. Deleting this event will not remove it from the log but will remove it from the Grid and Graph timeline. 1257 An Start Data 1300 Pre-Induction Immediate pre- induction anesthetic assessment performed. Vital signs as noted on graphic. 1302 An Induction 1303 An Intubation 1306 Anesthesia Ready 1318 Procedure Start This event d isplays the Procedure Start time documented in the Surgical Log. Deleting this event will not remove it from the log but will remove it from the Grid and Graph timeline. 1424 An Extubation Emergence unev entful Awake, spontaneous respirations. Adequate muscle strength demonstrated Adequate tidal volume. Orapharynx suctioned. Extubated with positive pressure ventilation. 1426 Procedure Stop This event di splays the Procedure Stop time documented in the Surgical Log. Deleting this event will not remove it from the log but will remove it from the Grid and Graph timeline. 1429 an stop data 1431 Out of Room This event disp lays the Out of Room time documented in the Surgical Log. Deleting this event will not remove it from the log but will remove it from the Grid and Graph timeline. 1435 An Stop 01/08/2022 0950 Follow-up Complete Meds Name Total midazolam PF (VERSED) 1 mg/mL injection 2 mg fentaNYL (SUBLIMAZE) PF 50??mcg/mL injec tion 200 mcg lidocaine PF (XYLOCAINE MPF) 2% injectio n 5 mL propofol (DIPRIVAN) 10??mg/mL injection 300 mg rocuronium (ZEMURON) 10mg/mL injection 5 0 mg succinycholine (ANECTINE) 140 mg/7 mL iv syringe 140 mg dexamethasone (DECADRON) 4 mg/mL injecti on 4 mg ondansetron (ZOFRAN) 4??mg/2 mL injectio n 4 mg ceFAZolin (ANCEF,KEFZOL) 2,000 mg in sod ium chloride 0.9% 50 mL IVPB (MBP) 2,000 mg metroNIDAZOLE (FLAGYL) IVPB 500 mg 500 m g acetaminophen (OFIRMEV) 1000 mg/100 mL I V 1,000 mg sugammadex (BRIDION) 100 mg/mL injection 250 mg lactated ringers infusion 800 mL * Agents No agents on file. * Blood No blood administrations on file. Lines, Drains, and Airways Type Details Placement Removal Pain Pump 01/07/22; 1352; 01/07/22; No; On Q; [id number]; Abdomen; MARCAINE 0.5% 01/07/22 1352 by Kandi García RN Peripheral IV Pre-Hospital Start: No; Orientation: Left, Posterior; Location: Hand; Device: Angiocath; Gauge: 20 gauge; Insertion Attempts: 1; Patient Tolerance: tolerated well; Removal Indication: removed per policy, no longer indicated; Removal Interventions: direct pressure, catheter intact 01/07/22 1145 by Rosa Maria Underwood RN 01/08/22 1453 by Tiffany Huffman RN Endotracheal Airway Type: ETT; Size: 7.5 ; Attempts: 1; Verification: Auscultated bilateral breath sounds, Equal chest movement, Continuous waveform capnography 01/07/22 1303 by Fay Cevallos CRNA 01/07/22 1424 by Radha Eilzabeth CRNA Incision 01/07/22; 1323; surgical incision; abdomen; 01/09/22; 0254 01/07/22 1323 by Kandi García RN 01/09/22 0254 by PROVIDER, DISCHARGE PATIENT documented in this encounter Social History Tobacco Use Types Packs/Day Years [...] PM CDT documented as of this encounter OR Notes * Anesthesia Post-Op Follow-up Note - Valentin Beckham CRNA - 01/08/2022 9:50 AM CDT Post Anesthesia Evaluation 01/08/2022 9:50 AM Vitals: BP 111/72 (BP Location: Right arm, Patient Position (BP): Sitting) Pulse 77 Temp 36.9 ??C (Oral) Resp 18 Ht 5' 8 (1.727 m) Wt (!) 147.4 kg (325 lb) SpO2 98% BMI 49.42 kg/m?? Pain: Comfortable Nausea/Vomiting: no nausea and no vomiting Respiratory function: no respiratory symptoms Sore throat: no Cardiovascular function: At patient's baseline Mental status, LOC:alert Patient participated in evaluation: yes Anesthetic complications: no, denies awareness/recall Valentin Beckham CRNA * Anesthesia Postprocedure Evaluation - Shailesh Ortega DO - 01/07/2022 3:46 PM CDT Post Anesthesia Evaluation Vitals: Vitals Value Taken Time BP 156/92 01/07/22 1535 Temp 36.7 ??C 01/07/22 1535 Resp 18 01/07/22 1535 SpO2 94 % 01/07/22 1535 Pulse 82 01/07/22 1535 Heart Rate 85 bpm 01/07/22 1500 Pain Rating: Pain Rating: Rest: 9 (01/07/22 1511) Pain Rating: Activity: 6 (01/07/22 1138) Presence of Pain: complains of pain/discomfort (01/07/22 1511) Anesthesia Post Evaluation Patient location during evaluation: PACU Patient participation: patient was able to participate in the post op evaluation Post-procedure mental status: returned to preop baseline. Pain management: adequate Multimodal analgesia pain management approach Airway patency: patent Two or more strategies used to mitigate risk of obstructive sleep apnea ( ) Nausea or Vomiting: none Cardiovascular status: other - see comment (same as preop rhythm) Respiratory status: no respiratory symptoms Hydration status: well hydrated Comments: Two or more of the following ROSSY mitigation strategies were employed: Intraop administration of CPAP, nasopharyngeal or oral airway during sedation or in PACU Multimodal analgesia Extubation when pt is awake Verification of full reversal of neuromuscular blockade Extubation and recovery carried out in lateral, semiupright or nonsupine postion Post op CPAP or nasophayngeal or oropharyngeal airway usage in PACU No notable events documented. Shailesh Ortega DO * Anesthesia Handoff - Radha Elizabeth CRNA - 01/07/2022 2:34 PM CDT Post-Anesthetic transfer of care report elements to appropriate post-anesthesia recovery environment completed in accordance with procedure. I completed my handoff to the receiving nurse during which we: 1. Identified the patient 2. Identified the responsible provider 3. Reviewed the pertinent medical history 4. Discussed the surgical course 5. Reviewed intra-op anesthesia management and issues during anesthesia 6. Set expectations for post-procedure period 7. Orders as necessary and appropriate for continuation of care are present in Epic. 8. Allowed opportunity for questions and acknowledgement of understanding. Vital Signs: BP: 137/78 (01/07/2022 2:34 PM) Pulse: 88 (01/07/2022 2:34 PM) Temp: 36.9 ??C (01/07/2022 2:34 PM) Resp: 18 (01/07/2022 2:34 PM) SpO2: 94 % (01/07/2022 2:34 PM) 2:35 PM Radha Elizabeth CRNA * Anesthesia Procedure Notes - Fay Cevallos CRNA - 01/07/2022 1:16 PM CDT Associated Order(s): Airway Airway Date/Time: 01/07/2022 1:03 PM Location: OR Plan: routine intubation Patient Identity Confirmed by: Verbally with patient and armband Airway: not difficult Staffing Performed By: JEWEL STAKER/Resident: Fay Cevallos CRNA Indications and Patient Condition: Indications for Airway Management: Anesthesia Preoxygenated: Yes Patient Position: Sniffing Mask Difficulty Assessment: 2 - vent by mask + OA or adjuvant +/- NMBA Plan to extubate at end of case: Yes Final Airway Details: Final Airway Type: Endotracheal airway Final Endotracheal Airway: ETT Cuffed: Yes Cuff Volume (mL): 7 Technique Used for Successful ETT Placement: Direct laryngoscopy Devices/Methods Used in Placement: Curved blade Insertion Site: Oral Laryngoscope Blade/Videolaryngoscope Blade Size: 4 ETT Size (mm): 7.5 Measured from: Teeth ETT to Teeth (cm): 22 Tube secured with: Tape Placement Verified by: auscultation, end tidal CO2 and chest rise Cormack-Lehane Classification: Grade IIa - partial view of glottis Number of Attempts at Approach: 1 Additional Comments: Mouth and teeth in preop condition * Anesthesia Preprocedure Evaluation - Shailesh Ortega DO - 01/07/2022 12:30 PM CDT Relevant Problems No relevant active problems Anesthesia Evaluation Anesthesia Plan ASA Final: [address] [place] [address] PRE ANESTHESIA EVALUATION 01/07/2022 12:31 PM Name: Joann Khalil Age: 41 y.o. Sex: female CSN: [id number] Procedure: Procedure(s): GASTRECTOMY LONGITUDINAL LAPAROSCOPIC ON-Q PAIN PUMP Surgeons/Assistants: Surgeon(s) and Role: * Karl Coates MD - Primary Diagnosis: Morbid (severe) obesity due to excess calories [E66.01] BP (!) 135/91 (BP Location: Right arm, Patient Position (BP): Sitting) Pulse (!) 110 Temp (!) 35.8 ??C (Temporal) Resp 20 Ht 5' 8 (1.727 m) Wt (!) 147.6 kg (325 lb 6.4 oz) SpO2 98% BMI49.48 kg/m?? Weight: Weight: (!) 147.6 kg (325 lb 6.4 oz) (01/07/22 1138) Height: Ht Readings from Last 1 Encounters: 01/04/22 5' 8 (1.727 m) BMI: Body mass index is 49.48 kg/m??. NPO Status: Last Food Intake (Date): 12/31/21 (01/07/22 1143) Last Fluid Intake (Date): 01/06/22 (01/07/22 1143) Last Fluid Intake (hh:mm): 2100 (01/07/22 1143) No Known Allergies Prior to Admission Medications Prescriptions Last Dose Informant Patient Reported? Taking? ALPRAZolam (XANAX) 0.25 mg tablet Past Week Yes Yes Sig: Take 0.25 mg by mouth nightly as needed for Anxiety. OTHER 01/07/2022 Yes Yes Sig: Provider please include Medication name, dose, route and frequency allopurinoL (ZYLOPRIM) 300 mg tablet 01/07/2022 Yes Yes Sig: Take 300 mg by mouth daily. cyclobenzaprine (FLEXERIL) 10 mg tablet 01/07/2022 Yes Yes Sig: Take 10 mg by mouth 3 times daily as needed for Spasm. lisinopriL (PRINIVIL) 40 mg tablet 01/07/2022 Yes Yes Sig: Take 40 mg by mouth daily. lisinopril-hydroCHLOROthiazide (ZESTORETIC) 20-25 mg tablet Yes Yes Sig: Take 1 Tablet by mouth daily. omeprazole magnesium (PriLOSEC) 20 mg Tablet, Delayed Release (E.C.) 01/07/2022 Yes Yes Sig: Take 20 mg by mouth daily. Facility-Administered Medications: None Current Facility-Administered Medications Medication Dose Route Frequency Provider Last Rate Last Admin ??? bupivacaine PF (SENSORCAINE MPF) 2.5 mg/mL (0.25%) 270 mL unilateral fixed rate On-Q pump Infiltration continuous Karl Coates MD ??? ceFAZolin (ANCEF,KEFZOL) 2,000 mg in sodium chloride 0.9% 50 mL IVPB (MBP) 2,000 mg IV pre-procone time Karl Coates MD ??? metroNIDAZOLE (FLAGYL) IVPB 500 mg 500 mg IV ONE time only Karl Coates MD ??? scopolamine (TRANSDERM-SCOP) 1 mg/72 hr transdermal patch 1 Patch 1 Patch Transdermal ONE time only Karl Coates MD 1 Patch at 01/07/22 1147 ??? lactated ringers bolus solution 2,000 mL 2,000 mL IV pre-proc one time Shailesh Ortega DO 2,000mL/hr at 01/07/22 1146 2,000 mL at 01/07/22 1146 ??? lactated ringers infusion IV pre-proc continuous Shailesh Ortega, DO ??? lactated ringers infusion IV post-proc continuous Shailesh Ortega, DO ??? lactated ringers infusion IV post-proc continuous Shailesh Ortega, DO ??? fentaNYL PF (SUBLIMAZE) 50 mcg/mL injection 25 mcg 25 mcg IV post-proc every 3 minutes PRN Shailesh Ortega, DO ??? HYDROmorphone (DILAUDID) 2 mg/mL injection 0.2 mg 0.2 mg IV post-proc every 5 minutes PRN Shailesh Ortega, DO ??? naloxone (NARCAN) 0.4 mg/mL injection 0.1 mg 0.1 mg IV see admin instructions Shailesh Ortega, DO ??? ondansetron (ZOFRAN) 4 mg/2 mL injection 4 mg 4 mg IV post-proc one time PRN Shailesh Ortega, DO ??? prochlorperazine (COMPAZINE) injection 5 mg 5 mg IV post-proc one time PRN Shailesh Ortega, DO There are no problems to display for this patient. Past Medical History: Diagnosis Date ??? Anxiety ??? GERD (gastroesophageal reflux disease) ??? HTN (hypertension) ??? Low back pain ??? Obstructive sleep apnea cpap ??? Wears contact lenses Past Surgical History: Procedure Laterality Date ??? HX CHOLECYSTECTOMY ??? HX EGD Previous Anesthesia Problems/Concerns: No anesthesia problems/complications Social History Tobacco Use ??? Smoking status: Never ??? Smokeless tobacco: Never Substance Use Topics ??? Alcohol use: Not Currently No family history on file. Exercise Tolerance: [] Excellent [] Good [x] Fair [] Poor [] Unable to exercise due to physical disability GERD: [] No [x] Yes [x] Controlled [] Uncontrolled ROSSY Screening: yes [] POSITIVE: The patient's symptoms suggest the possibility of ROSSY. The pathophysiology of snoring and apnea was discussed as well as the [facility] need for significant weight loss. A formal Sleep Study was suggested. The use of Breathe-Right nasal strips may provide some benefit. Did discuss CPAP as potential treatment if ROSSY is confirmed. [] NEGATIVE: The patient's symptoms did not suggest the possibility of ROSSY. [x] PREVIOUSLY DIAGNOSED LABS No results found for: WBC, MANUALWBC, HGB, HGBPOC, HCT, HCTPOC, PLT, MCV No results found for: NA, K, CL, CO2, CA, BUN, CREAT, GLUCOSE, TOTALPROTEIN, ALBUMIN, BILITOTAL, ALKPHOS, AST, ALT, ANIONGAP, BCRATIO No results found for: INR, PT, APTT, PROTIMEPOC Lab Results Component Value Date HCGQUALUR Negative 01/07/2022 No results found for: GLUCPOC EKG: No results found for this or any previous visit. CXR: No results found for this or any previous visit. PHYSICAL EXAM ASA Class: ASA 3 - Patient with moderate systemic disease with functional limitations Heart: regular rate and rhythm Lungs: clear to auscultation Neuro: alert & oriented AIRWAY Airway Class: III (soft palate, base of uvula visible); Thyromental Distance (TMD): 3+ Finger Breadth Neck ROM: full Dentition: fair I have seen and examined this patient and confirm that all data is current and accurate. ANESTHETIC PLAN: General Patient identified and history and physical performed. Risks and plan of anesthesia discussed with patient and/or legal graphic art sales representative and patient and/or legal graphic art sales representative agreed to proceed. Shailesh Ortega DO 01/07/2022 documented in this encounter Miscellaneous Notes * Addendum Note - Valentin Beckham CRNA - 01/08/2022 9:51 AM CDT Addendum created 01/08/22 0951 by Valentin Beckham CRNA Clinical Note Signed, Intraprocedure Event edited documented in this encounter Plan of Treatment Not on file documented as of this encounter Procedures Procedure Name Priority Date/Time Associated Diagnosis Comments RI ANES INSERT ENDOTRACHEAL AIRWAY Routine 01/07/2022 1:03 PM CDT documented in this encounter Results * RI ANES INSERT ENDOTRACHEAL AIRWAY (01/07/2022 1:03 PM CDT) Narrative Fay Cevallos CRNA - 01/07/2022 1:03 PM CDT Fay Cevallos CRNA ? 01/07/2022 ??1:17 PM Airway Date/Time: 01/07/2022 1:03 PM Location: OR Plan: routine intubation Patient Identity Confirmed by: ??Verbally with patient and armband Airway: not difficult Staffing Performed By: JEWEL STAKER/Resident: Fay Cevallos CRNA Indications and Patient Condition: ??Indications for Airway Management: ??Anesthesia ??Preoxygenated: Yes ?Patient Position: ??Sniffing ??Mask Difficulty Assessment: ??2 - vent by mask + OA or adjuvant +/- NMBA ??Plan to extubate at end of case: Yes ?? Final Airway Details: ??Final Airway Type: ??Endotracheal airway ??Final Endotracheal Airway: ??ETT ??Cuffed: Yes ?Cuff Volume (mL): ??7 ??Technique Used for Successful ETT Placement: ??Direct laryngoscopy ??Devices/Methods Used in Placement: ??Curved blade ??Insertion Site: ??Oral ??Laryngoscope Blade/Videolaryngoscope Blade Size: ??4 ??ETT Size (mm): ??7.5 ??Measured from: ??Teeth ??ETT to Teeth (cm): ??22 ??Tube secured with: ??Tape ??Placement Verified by: auscultation, end tidal CO2 and chest rise ?Cormack-Lehane Classification: ??Grade IIa - partial view of glottis ??Number of Attempts at Approach: ??1 Additional Comments: ?? Mouth and teeth in preop condition Shailesh Ortega DO PROCEDURE/MINOR SURG ICAL ORDERABLES documented in this encounter Visit Diagnoses Not on filedocumented in this encounter Administered Medications Inactive Administered Medications - up to 3 most recent administrations Medication Order MAR Action Action Date Dose Rate Site acetaminophen (OFIRMEV) 10 mg/mL injection IV, INTRA-PROCEDURE PRN, Starting on Fri01/07/22 at 1318, Until Fri01/07/22 at 1435, Routine, Anesthesia Intra-op Given 01/07/2022 1:18 PM CDT 1,000 mg ceFAZolin (ANCEF,KEFZOL) 2,000 mg in sodium chloride 0.9% 50 mL IVPB (MBP) 2,000 mg, IV, PRE-PROCEDURE ONCE, 1 dose, Starting on Fri01/07/22 at 1050, Until Fri01/07/22 at 1336, Stat, Pre-op, Antibiotic Indication: Surgical prophylaxis New Bag 01/07/2022 1:06 PM CDT 2,000 mg dexAMETHasone (DECADRON) injection IV, INTRA-PROCEDURE PRN, Starting on Fri01/07/22 at 1319, Until Fri01/07/22 at 1435, Routine, Anesthesia Intra-op Given 01/07/2022 1:19 PM CDT 4 mg fentaNYL PF (SUBLIMAZE) 50 mcg/mL injection IV, INTRA-PROCEDURE PRN, Starting on Fri01/07/22 at 1302, Until Fri01/07/22 at 1435, Routine, Anesthesia Intra-op Given 01/07/2022 2:05 PM CDT 50 mcg Given 01/07/2022 1:47 PM CDT 50 mcg Given 01/07/2022 1:38 PM CDT 50 mcg lactated ringers infusion IV, at 125 mL/hr, PRE-PROCEDURE CONTINUOUS, Starting on Fri01/07/22 at 1100, Until Fri01/07/22 at 1531, Stat, Pre-op New Bag 01/07/2022 12:56 PM CDT lidocaine PF 2% (XYLOCAINE MPF) injection IV, INTRA-PROCEDURE PRN, Starting on Fri01/07/22 at 1302, Until Fri01/07/22 at 1435, Routine, Anesthesia Intra-op Given 01/07/2022 1:02 PM CDT 5 mL metroNIDAZOLE (FLAGYL) IVPB 500 mg 500 mg, IV, ONE TIME ONLY, 1 dose, On Fri01/07/22 at 1100, Stat, Pre-op, Antibiotic Indication: Surgical prophylaxis Given 01/07/2022 1:28 PM CDT 500 mg midazolam (PF) (VERSED) injection IV, INTRA-PROCEDURE PRN, Starting on Fri01/07/22 at 1253, Until Fri01/07/22 at 1435, Routine, Anesthesia Intra-op Given 01/07/2022 12:53 PM CDT 2 mg ondansetron (ZOFRAN) 4 mg/2 mL injection IV, INTRA-PROCEDURE PRN, Starting on Fri01/07/22 at 1348, Until Fri01/07/22 at 1435, Routine, Anesthesia Intra-op Given 01/07/2022 1:48 PM CDT 4 mg propofoL (DIPRIVAN) injection IV, INTRA-PROCEDURE PRN, Starting on Fri01/07/22 at 1302, Until Fri01/07/22 at 1435, Anesthesia Intra-op Given 01/07/2022 2:05 PM CDT 50 mg Given 01/07/2022 1:49 PM CDT 50 mg Given 01/07/2022 1:02 PM CDT 200 mg rocuronium injection IV, INTRA-PROCEDURE PRN, Starting on Fri01/07/22 at 1310, Until Fri01/07/22 at 1435, Routine, Anesthesia Intra-op Given 01/07/2022 1:10 PM CDT 50 mg succinylcholine Chloride (ANECTINE) 140 mg/7 mL (20 mg/mL) injection IV, INTRA-PROCEDURE PRN, Starting on Fri01/07/22 at 1302, Until Fri01/07/22 at 1435, Routine, Anesthesia Intra-op Given 01/07/2022 1:02 PM CDT 140 mg sugammadex (BRIDION) 100 mg/mL injection IV, INTRA-PROCEDURE PRN, Starting on Fri01/07/22 at 1408, Until Fri01/07/22 at 1435, Routine, Anesthesia Intra-op Given 01/07/2022 2:08 PM CDT 250 mg documented in this encounter Care Teams Vocational Ed Instructor Relationship Specialty Start Date End Date Priya Martin MD PCP - General Family Practice 12/21/21 documented as of this encounter
--- OUTSIDE RECORDS SUMMARY | 2024-03-20 05:00 | XMS_ITS | Encounter Summary ---
Author Organization [facility] Address [address] [place] [address] Care Team Providers Care Financial Sales Advisor Name Role Phone Priya Martin MD Primary Care Provider [phone] Reason for Visit * Auth/Cert Specialty Diagnoses / Procedures Referred By Iban araujo Referred To Contact Perioperative Diagnoses Morbid (severe) obesity due to excess calories Procedures KS LAP, PETROS RESTRICT PROC, LONGITUDINAL GASTRECTOMY KS ABDOMEN SURGERY PROC UNLISTED GASTRECTOMY LONGITUDINAL LAPAROSCOPIC ON-Q PAIN PUMP [facility]ule[facility] Sepulveda Operating Room [address] [address] Referral ID Status Reason Start Date Expiration Date Visits Re quested Visits Authorized [id number] 1 1 Encounter Details Date Type Department Care Team (Late st Contact Info) Description 01/07/2022 11:45 AM CDT - 01/07/2022 12:45 PM CDT Surgery [facility] Operating Room [address] [address] Karl Coates MD [address] [address] GASTRECTOMY LONGITUDINAL LAPAROSCOPIC ON-Q PAIN PUMP Surgery Details Date/Time Status Location OR Service Patient Class Case Class Case Type Trauma Case? 01/07/2022 11:45 AM Posted [facility] 02 General Surgery Surgery Admit Elective No Panel 1 Procedure LRB Anes Op Region Wound Class Comments GASTRECTOMY LONGITUDINAL LAPAROSCOPIC ON-Q PAIN PUMP N/A General Abdomen Clean Contaminated-II ON-Q PAIN PUMP CODE 18 Surgeon Surgeon Role Service Panel Karl Coates MD Primary General Surgery 1 Case Notes ON-Q PAIN PUMP CODE 18 [id number] 12/18/2021 KMM documented in this encounter Social History Tobacco [...] to have Coronavirus/COVID-19? No / Unsure 01/07/2022 9:27 AM CDT documented as of this encounter Last Filed Vital Signs Vital Sign Reading Time Taken Comments Blood Pressure 135/91 01/07/2022 11:38 AM CDT Pulse 110 01/07/2022 11:38 AM CDT Temperature 35.8 ??C (96.4 ??F) 01/07/2022 1 1:38 AM CDT Respiratory Rate 20 01/07/2022 11:3 8 AM CDT Oxygen Saturation 98% 01/07/2022 11: 38 AM CDT Inhaled Oxygen Concentration - - Weight 147.6 kg (325 lb 6.4 oz) 022 11:38 AM CDT Height 172.7 cm (5' 8 ) 01/04/2022 1:25 PM CDT Body Mass Index 49.42 01/07/2022 6:30 PM CDT documented in this encounter Discharge Summaries * Kaylan Fairchild FNP - 01/08/2022 6:40 AM CDT Discharge Summary [address] [address] Joann Khalil 41 y.o. female 1980 CSN: [id number] Date of Admission: 01/07/2022 Date of Discharge: [...] gastrectomy, secondary to morbid obesity by Dr Cotaes. Hospitalist group was consulted for ongoing medical [...] Your Medications These medications were sent to [facility] [address], [address], [place] [address] Hours: Friday-Friday: 8:30 a.m. - 5:00 p.m., Friday: 9:00 a.m. - 1:00 p.m. HYDROcodone-acetaminophen 7.5-325 mg/15 mL Solution ondansetron 4 mg Tablet, Rapid Dissolve Consultants: Felicitas Pimentel Discharge Lab Data: Lab Results Component Value [...] Patient was given discharge instructions by Cassi HERNANDEZrailroad dining car steward/stewardessrespite coordinator, Hospitalist Group BATTERY TECHNICIAN, and or Dr. Coates. Patient was [...] that 100 or less than 60. Recommend [id number] 6 months follow up with primary care [...] wound/incision: Shower daily Pain ball: Remove on , January [address] Coates if There is redness, swelling, increasing pain in the wound Pus is coming from wound. You develop an unexplained oral temperature above 102?? F (38.9?? C) You notice a foul smell coming from the wound . If your unable to tolerate fluids Persistent nausea/vomiting * Attachments The following attachments cannot be sent through Care Everywhere. * ondansetron (oral) ([place]) * acetaminophen and hydrocodone ([place]) documented in this encounter Medications at Time [...] pt to ambulate. Assessed abd incisions with COLON AND RECTAL SURGEON, ONQ open and unclamped. Dressing CDI, no drainage. [...] Coates MD - 01/07/2022 11:18 AM CDT [address] [address] [place] [address] History and Physical Patient: Joann Khalil : [...] in this encounter Consult Notes * Kaylan Fairchild FNP - 01/07/2022 5:06 PM CDTAssociated Order(s): IP CONSULT TO HOSPITALIST Hospitalist Consultation Note Patient Name: Joann Khalil [id number] Primary Care Doctor: Priya Martin MD Requesting [...] Procedure Laterality Date HX CHOLECYSTECTOMY HX EGD KS LAP, PETROS RESTRICT PROC, LONGITUDINAL GASTRECTOMY N/A 01/07/2022 GASTRECTOMY LONGITUDINAL LAPAROSCOPIC ON-Q PAIN PUMP performed by Karl Coates MD at [facility] MAIN OR Current Medications: Medications Prior to [...] Clear Clear Labs reviewed on chart by jingle writer done prior to arrival Assessment:PLAN Morbid [...] coordination of care. Thank you for consulting [facility]. We will gladly follow the patient throughout their stay. NENITA Up This note was transcribed using Speech Recognition software. May contain unintended grammar and spelling errors. If there are any questions or major errors, please contact me. documented in this encounter OR Notes * Operative Report - Karl Coates MD - 01/07/2022 2:12 PM CDT Joann Khalil [id number] 01/07/2022 PRE OP DIAGNOSES: Morbid obesity with [...] wall catheters x2 SURGEON: Karl Coates MD PALLIATIVE MEDICINE PHYSICIAN: None ANESTHESIA: GETA ESTIMATED BLOOD LOSS IN MLS: 50 cc COMPLICATIONS: None SPECIMEN: None PREOPERATIVE NOTE: The contemplated operative procedure, risks, benefits and alternatives to this procedure have been discussed with this patient and/or legal medical billing representative. The patient and/or legal medical billing representative acknowledge(s) understanding of the above and [...] - 01/07/2022 1:49 PM CDT ST[employer]AD [id number] LOT# [id number] EXP. 08/21/26 * Aniyah-OP - Kandi García RN - 01/07/2022 1:27 PM CDT ST[employer] LOADS [id number] LOT# [id number] EXP. 06/21/26 STAPLE LOADS [id number] LOT# [id number] EXP. 07/21/26 * Aniyah-OP - Yasmine Ayon [...] follow-up. Outcome: Met Day 1 - Current ([place] [facility]: Adult and Obstetrics) Patient, family, or [...] because of medications (i.e. - BP meds, CV/INFANTRY UNIT LEADER meds, seizure meds, diuretics, pain meds, psych [...] board, note pad and pen, etc) 2. SOFA COVER INSPECTOR referral if applicable 3. Provide education in patient's primary language. Obtain translator/interpreter and appropriate written materials. If patient refuses translator/interpreter services have refusal waiver signed 4. Patients [...] follow for discharge planning. Corin Britton LCSW [facility] Care Management [phone] * Care Plan - Erika Ritter, RN - 01/07/2022 3:20 PM CDT Potential [...] METABOLIC PANEL Routine 01/08/2022 5:21 AM CDT KS LAPS GSTRC RSTRICTIV PX LONGITUDINAL GASTRECTOMY 01/07/2022 11:45 AM CDT Morbid (severe) obesity due to excess calories Case Notes ON-Q PAIN PUMP CODE 18 [id number] 12/18/2021 KMM HCG QUALITATIVE, URINE Stat 01/07/2022 11:13 AM CDT documented in this encounter Results * (ABNORMAL) HEMOGLOBIN A1C (01/08/2022 5:21 AM CDT) HEMOGLOBIN A1C 7.2(H) <=5.6 % 01/08/2022 6:11 AM CDT [facility] EST. AVG GLUCOSE, A1C 160 mg/dL 01/08/2022 6:11 AM CDT [facility] Blood Venipuncture / Unknown 01/08/2022 5:21 AM CDT 01/08/2022 5:55 AM CDT Narrative [facility] - 01/08/2022 6:11 AM CDT HGB A1C INTERPRETATION NORMAL: ? <5.7% PRE-DIABETES: 5.7 - 6.4% DIABETES: ? 6.5% OR GREATER Karl Coates MD CHEMISTRY ORDERABLES [facility] CLIA # [id number] [address] [place] [id number] * (ABNORMAL) BASIC METABOLIC PANEL (01/08/2022 5:21 AM CDT) SODIUM 135(L) 136 - 145 mmol/L 01/08/2022 5:56 AM [facility] [place] POTASSIUM 4.2 3.5 - 5.1 mmol/L 01/08/2022 5:56 AM [facility] [place] CHLORIDE 101 98 - 107 mmol/L 01/08/2022 5:56 AM [facility] [place] [facility] CO2 19(L) 22 - 29 mmol/L 01/08/2022 5:56 AM [facility] [place] CALCIUM 9.5 8.6 - 10.0 mg/dL 01/08/2022 5:56 AM [facility] [place] [facility] BUN 5(L) 6 - 20 mg/dL 01/08/2022 5:56 AM [facility] [place] [facility] CREATININE 0.56 0.51 - 0.95 mg/dL 01/08/2022 5:56 AM [facility] [place] [facility] GLUCOSE 165(H) 74 - 99 mg/dL 01/08/2022 5:56 AM [facility] GFR >60 >=60 mL/min/1.7 3 sq meter 01/08/2022 5:56 AM [facility] Comment:eGFR calculated with 2020 CKD-EPI equation. Vegetarian diet, extremely high or low muscle mass, and may affect results. Cystatin C with Glomerular Filtration Rate is a suitable alternative for these patients. ANION GAP 15 5 - 15 mmol/L 01/08/2022 5:56 AM T [facility] Blood Venipuncture / Unknown 01/08/2022 5:21 AM CDT 01/08/2022 5:44 AM CDT Karl Coates MD CHEMISTRY ORDERABLES [facility] [facility] CLIA # [id number] [facility] [address] [place] [id number] * (ABNORMAL) CBC WITHOUT DIFFERENTIAL (01/08/2022 5:21 AM CDT) WBC 16.0(H) 4.0 - 11.0 K/uL 01/08/2022 5:35 AM T [facility] RBC 4.09(L) 4.20 - 5.40 M/uL 01/08/2022 5:35 AM [facility] [employer] [facility] HEMOGLOBIN 11.5(L) 11.9 - 15.1 g/dL 01/08/2022 5:35 AM T [facility] HEMATOCRIT 35.2(L) 38.0 - 47.0 % 01/08/2022 5:35 AM [facility] MCV 86.1 80.0 - 98.0 fL 01/08/2022 5:35 AM T [facility] MCH 28.1 26.0 - 34.0 pg 01/08/2022 5:35 AM T [facility] MCHC 32.7 31.0 - 37.0 g/dL 01/08/2022 5:35 AM T [facility] PLATELETS 267 150 - 400 K/uL 01/08/2022 5:35 AM T [facility] MPV 9.7 8.5 - 12.5 fL 01/08/2022 5:35 AM T [facility] RDW 14.0 11.5 - 14.5 % 01/08/2022 5:35 AM CDT [facility] RDW-STDEV 43.4 34.0 - 54.0 fL 01/08/2022 5:35 AM CDT [facility] Blood Venipuncture / Unknown 01/08/2022 5:21 AM CDT 01/08/2022 5:33 AM CDT Karl Coates MD HEMATOLOGY ORDERABLE S [facility] [employer] [facility] CLIA # [id number] [address] [place] [address] * HCG QUALITATIVE, URINE (01/07/2022 11:13 AM CDT) HCG QUAL URINE Negative Negative 01/07/2022 11:27 AM CDT [facility] COLOR UA Yellow Pale to Dark Yellow 01/07/2022 11:27 AM CDT [facility] [employer] [facility] CLARITY UA Clear Clear 01/07/2022 11:27 AM CDT [facility] Urine URINE SPECIMEN OBTAINED BY CLEAN CATCH PROCEDURE / Unknown Collection / Unknown 01/07/2022 11:13 AM CDT 01/07/2022 11:22 AM CDT Narrative [facility] - 01/07/2022 11:27 AM CDT hCG sensitive to as little as 20 mIU/mL for urine Shailesh Ortega DO URINE ORDERABLES [facility] [employer] [facility] CLIA # [id number] [address] [place] [address] documented in this encounter Visit Diagnoses Diagnosis Post-op pain- Primary Other acute postoperative pain Morbid (severe) obesity due to excess calories documented in this encounter Administered Medications Inactive Administered Medications - up to 3 most recent administrations Medication Order MAR Action Action Date Dose Rate Site bupivacaine PF (SENSORCAINE MPF) 2.5 mg/mL (0.25%) 270 mL unilateral fixed rate On-Q pump Infiltration, CONTINUOUS, Starting on Fri01/07/22 at 1100, Until Fri01/08/22 at 1659, 270 mL, Stat, Pre-op, USE: Incisional Infiltration, FILL CAPACITY: 270-335 mL, LUMEN QTY: Dual Lumen, RATE: 4 mL/hr (2 mL/lumen) New Bag 01/07/2022 2:36 PM CDT 6 mL/hr 6 mL/hr bupivacaine PF (SENSORCAINE MPF) 2.5 mg/mL (0.25%) injection INTRA-PROCEDURE PRN, Starting on Fri01/07/22 at 1322, Until Fri01/07/22 at 1431, Routine, Intra-op Given 01/07/2022 1:22 PM CDT 10 mL Operative Site cloNIDine HCL (CATAPRES) tablet 0.1 mg 0.1 [...] Given 01/07/2022 9:18 PM CDT 20 mg heparin injection 5,000 Units 5,000 Units, subCUT, POST-PROCEDURE Q 8 HOURS, First dose on Fri01/08/22 at 0230, Until Discontinued, Routine, Post-op - Floor Given 01/08/2022 11:47 AM CDT 5,000 Units Abdomen, Left Upper Quadrant Given 01/08/2022 2:10 AM CDT 5,000 Units A bdomen, Left Lower Quadrant lactated ringers irrigation solution INTRA-PROCEDURE PRN, Starting on Fri01/07/22 at 1404, Until Fri01/07/22 at 1431, Intra-op Given 01/07/2022 2:04 PM CDT 1,000 mL Operative Site lisinopriL (PRINIVIL) tablet 40 mg 40 mg, [...] Given 01/07/2022 3:39 PM CDT 10 mg morphine 4 mg/mL injection 2 mg 2 mg, IV, EVERY 4 HOURS PRN, Starting on Fri01/07/22 at 1542, Until Fri01/08/22 at 1659, Pain (See admin instructions), Routine, Post-op - Floor potassium CHLORIDE in NaCl 0.9% 1,000 mL 20 mEq/L infusion IV, at 150 mL/hr, CONTINUOUS, Starting on Fri01/08/22 at 0645, Until Fri01/08/22 at 1659, Routine sodium chloride 0.9 % irrigation solution INTRA-PROCEDURE PRN, Starting on Fri01/07/22 at 1322, Until Fri01/07/22 at 1431, Routine, Intra-op Given 01/07/2022 1:22 PM CDT 1,000 mL Opera tive Site documented in this encounter Active and Recently [...] Pre-op 1147 (Given - Provider: Rosa Maria Underwood RN) famotidine PF (PEPCID) 20 mg/2 mL injection 20 mg 20 mg, IV, TWO TIMES DAILY, First dose on Fri01/07/22 at 2100, Until Discontinued, Routine, Post-op - Floor 211 (Given - Provider: Christiane Salinas RN) 0800 (Given - Provider: Tiffany Huffman RN) heparin injection 5,000 Units (COMPLETED) 5,000 Units, subCUT, PRE-PROCEDURE ONCE, 1 dose, Starting on Fri01/07/22 at 1050, Until Fri01/07/22 at 1147, Stat, Pre-op 1147 (Given - Provider: Rosa Maria Underwood RN) heparin injection 5,000 Units 5,000 Units, subCUT, [...] Melania Thakur RN)2314 (Stopped - Provider: Christiane Salinas, RN) 0613 (New Bag - Provider: Christiane Salinas, RN)0713 (Stopped - Provider: Tiffany Huffman RN) [...] Routine, PACU 1508 (Given - Provider: Erika Ritter, RN)1511 (Given - Provider: Erika Ritter RN) [...] prophylaxis documented in this encounter Care Teams Financial Sales Advisor Relationship Specialty Start Date End Date Priya Martin MD PCP - General Family Practice 12/21/21 documented as of this encounter
--- OUTSIDE RECORDS SUMMARY | 2024-03-20 05:00 | XMS_ITS | Encounter Summary ---
Author Organization [facility] Address [address] [place] [address] Dr. Barrera: Epic Prelude ADT JOSUE WOO TONY [address] Care Team Providers Care Rail Manager Name Role Phone Priya Martin MD Primary Care Provider [phone] Encounter Details Date Type Department Care Team (Latest Contact Info) Description 01/04/2022 Travel Social History Tobacco Use Types Packs/Day [...] suspected to have Coronavirus/COVID-19? No / Unsure 01/04/2022 1:22 PM CDT documented as of this encounter Plan of Treatment Not on file documented as of this encounter Visit Diagnoses Not on filedocumented in this encounter Care Teams Rail Manager Relationship Specialty Start Date End Date Priya Martin MD PCP - General Family Practice 12/21/21 documented as of this encounter
== END 2024-03-13 07:38 | disposition home or self-care (01) ==
LOC: ANHLAB 07:39
PROVIDERS: PCP Family Medicine; Visit Provider Obstetrics & Gynecology
DX: O02.1 Missed abortion (principal)
CPT/HCPCS: 36415; 84702

== ENCOUNTER 2024-03-22 07:10 | Outpatient (CLI) | payer OTHER, SELFPAY ==
[2024-03-22 08:15] LABS: Beta HCG Quantitative < 2.39 mIU/ML
== END 2024-03-22 07:11 | disposition home or self-care (01) ==
LOC: ANHLAB 07:11
PROVIDERS: PCP Family Medicine; Visit Provider Obstetrics & Gynecology
DX: O02.1 Missed abortion (principal)
CPT/HCPCS: 36415; 84702

== ENCOUNTER 2024-04-12 10:24 | Outpatient (CLI) | payer OTHER, SELFPAY ==
--- NOTE | ~2024-04-12 | MM_ITS ---
EXAMINATION: MM screening brenda BI w emerita HISTORY: Screening TECHNIQUE: Craniocaudal and mediolateral oblique 3-D tomosynthesis images were obtained and synthetic 2-D images were generated. CAD analysis was submitted and interpreted. COMPARISON: Comparison to multiple prior studies sequentially, with oldest reviewed study dated 08/2021. BREAST PARENCHYMAL COMPOSITION: Not dense: There are scattered areas of fibroglandular density. FINDINGS: There is no evidence of suspicious mass, calcification, or architectural distortion to sugg est malignancy in either breast. There has been no suspicious interval change. IMPRESSION: 1. No mammographic evidence of malignancy. 2. Recommend routine screening mammography in one year. BI-RADS Category 1: Negative Reviewed, dictated and finalized at location A. MAKER
--- OUTSIDE RECORDS SUMMARY | 2024-04-15 12:46 | XMS_ITS | Data Portability ---
Author Organization [place] [facility] [email or web address], Main Office Address [address] [place] [address] Care Team Providers Care Software Implementation Specialist Name Role Phone PRIYA RODRIGUES Primary Care Provider [phone] PRIYA RODRIGUES Referring Provider Assessment Encounter Date Assessment Date Assessment LastModified by Organization Details LastModified Time 09/04/2022 09/04/2022 HPI: Patient returns. It has been 3 months since her last cortisone injection right knee. She has severe lateral compartment osteoarthritis. She weaned herself off her meloxicam and unfortunately started having a lot more symptoms. Her mother had a fall and she was taking her to the doctor more she also had a at the same time frame. And her knee at this point got quite a bit sore. She has not resume the meloxicam yet. Again patient has had gastric surgery and has lost over 100 lb from that. She has asked multiple times with the surgeon that did this about taking meloxicam and they are comfortable with her taking it. She wished to have another cortisone injection in the knee today. Physical exam: 41-year-old female alert pleasant. She has obvious valgus alignment to the right knee. This does not correct fully. Range of motion is from 15-125 degrees. There is no increased swelling in either lower extremity. Moderate tenderness over lateral joint line to palpation. ChloraPrep was used on skin 20 mg Kenalog and 3 cc of 0.5% ropivacaine was injected into the right knee. Risk infection discussed. Impression: 41-year-old female who has severe lateral compartment osteoarthritis. She is going to go back on the meloxicam. Limiting her activities as much as possible we will also help with her symptoms. Hopefully we can put off surgery as long as possible. We will see her back in 3 months repeat injection. Not available 09/04/2022 12:19:02 12/06/2022 12/06/2022 HPI: Patient returns. She is here for cortisone injection the right knee. Last shot 3 months ago. She is getting good relief. She has lost little bit weight since we saw her last. She is down 120 lb from last December she states. She has been taking the meloxicam every other day at this point tolerating well. These last 3 months have done relatively well with regard to knee. Previous x-rays have shown Moderately severe lateral compartment osteoarthritis in the knee. She wished to have another injection today. physical exam: 42-year-old female alert pleasant. She walks very well without limp. She has just a minimal valgus alignment to the right knee. Mild effusion. Range of motion is 2-135 degrees. Mild tenderness over lateral joint line to palpation. After ChloraPrep was used on the skin 20 mg Kenalog and 3 cc of 0.5% ropivacaine was injected into the right knee. Risk infection discussed. Impression: 42-year-old female who has moderately severe lateral compartment osteoarthritis the right knee. Shots continue to work well for her. We will see her in 3 months repeat injection. Not available 12/06/2022 09:06:39 03/05/2023 03/05/2023 Impression: Patient has severe lateral compartment osteoarthritis of the right knee. She is only 42 years old and she is trying to put off knee replacement as long as possible. She would like another cortisone shot today. Risk of side effects including risk of infection discussed. After ChloraPrep prep, 20 mg of Kenalog and 4 cc of 0.5% ropivacaine were injected at the right knee without difficulty. She is continuing to work on losing weight. I will see her back in 3 months to assess her progress. 20 minutes were spent total care this patient more than half the time spent in yutu-nq-gxix care. [email or web address] Not available 03/09/2023 12:04:30 06/09/2023 06/09/2023 HPI: Patient returns removed she is here for a cortisone injection in the right knee. Last shot was 3 months ago. She gets excellent relief. She has severe lateral compartment osteoarthritis. She is not ready to talk about surgery She would like another injection. Physical exam: 42-year-old female alert pleasant. she has a mild valgus alignment that does not correct fully in extension. Mild effusion. Range of motion is from 7-135 degrees. Mild tenderness over the lateral joint line to palpation. After alcohol prep 20 mg Kenalog and 3 cc of 0.5% ropivacaine was injected into the right knee. Impression: 42-year-old female who has severe lateral compartment osteoarthritis right knee. Shots continue to give her good benefit. Will see her in 3 months. [email or web address] Not available 06/09/2023 14:47:12 Plan of Treatment Reminders Order Date Submit Date Provider Last Modified By Organization Details Last Modified Time Details Appointments None recorded. Lab None recorded. Referral None recorded. Procedures injection/a spiration joint/bursa (PROC) - in office procedure, administere d by provider 2022 023 In-Office Order, Internal Use Only DO Not Attach Compendium DO Not Attach Compendium, Do Not Delete/merge, [id number] 11:33:06 injection/a spiration joint/bursa (PROC) - in office procedure, administere d by provider 2022 023 [email or web address] In-Office Order, Internal Use Only DO Not Attach Compendium DO Not Attach Compendium, Do Not Delete/merge, [id number] 3 08:54:41 injection/a spiration joint/bursa (PROC) - in office procedure, administere d by provider 2022 023 [email or web address] In-Office Order, Internal Use Only DO Not Attach Compendium DO Not Attach Compendium, Do Not Delete/merge, [id number] 3 11:32:06 injection/a spiration joint/bursa (PROC) - in office procedure, administere d by provider 2023 024 [email or web address] In-Office Order, Internal Use Only DO Not Attach Compendium DO Not Attach Compendium, Do Not Delete/merge, [id number] 4 13:50:59 Surgeries None recorded. Imaging XR, knee 2022 023 [email or web address] [facility], [address], [place], [address], 3 10:58:14 Medication Orders Kenalog 10 mg/mL suspension for injection 2022 023 [email or web address] [facility] #65858, [address] [facility], [place], [place], [id number], 4 12:41:24 ropivacaine (PF) 5 mg/mL (0.5 %) injection solution 2022 023 [email or web address] [facility] #44287, [address] [place] [address], [id number], 4 08:48:03 Kenalog 10 mg/mL suspension for injection 2022 023 [email or web address] [facility] #69238, [address] [place] [address], [id number], 4 12:41:24 ropivacaine (PF) 5 mg/mL (0.5 %) injection solution 2022 023 [email or web address] [facility], [address] [place] [address], [id number], 4 08:48:03 Kenalog 10 mg/mL suspension for injection 2022 023 [email or web address] [facility] #85312, [address] [place] [address], [id number], 4 12:41:24 ropivacaine (PF) 5 mg/mL (0.5 %) injection solution [email or web address] [place], [place] [address] #04478, [address] [place] [address], [id number], 4 08:48:03 meloxicam 15 mg tablet 2023 [facility] #41483, [address], [id number], 20:02:28 Kenalog 10 mg/mL suspension for injection [address] [facility] #41535, [address], [id number], 4 17:08:44 bupivacaine (PF) 0.25 % (2.5 mg/mL) injection solution [address] [facility] #46794, [address], [id number], 17:08:44 Patient TargetsNo targets recorded. Patient InstructionsNo instructions recorded. Reason for Referral None Reported. Results Created Date Observation Date Name Description Value Unit Range Abnormal Flag Note LastModifiedBy Organization Detail LastModifiedTime 11/22/1911/21/2022 MAMMO , scree chano, digit al, bilat eral No observ ation record ed. [email or web address] [facility] [address], [place], [address], 11/26/2022 08:44:46 01/24/20 23 01/23/2023 XR, finge r(s) No observ ation record ed. [email or web address] [facility] [address], [place], [address], 01/24/2023 08:38:44 03/05/20 XR, knee No observ ation record ed. [email or web address] [facility] [place] [address], [place], [address], 03/09/2023 12:02:11 04/08/19 24 04/08/2023 MAMMO , scree chano, digit al, bilat eral No observ ation record ed. [email or web address], [place], [address], 05/12/2023 11:35:15 Result Notes None recorded. Problems Name Problem SNOMED Code Status Onset Date Resolution Date Notes Provider Name and Address Organization Details Recorded Time Gastroeso phageal reflux disease 028021948 Active Not Available [facility] 3 06:47:54 Foot joint pain 909836234 Active Not Available [facility] 3 06:47:54 Dizziness 411753649 Active Not Available [facility] 3 06:47:54 Onychomyc osis 760257643 Active Not Available [facility] 3 06:47:54 Atypical squamous cells of undetermi gm significa nce on cervical Papanicol aou smear 699112570 Completed Not Available [facility] 3 06:47:54 Pain of right knee joint 97910361703 4100 Active 2021 Not Available [facility] 3 06:47:54 Hyperlipi demia 40167797 Active Not Available [facility] 3 06:47:54 Carpal tunnel syndrome 16178119 Active Not Available [facility] 3 06:47:55 Hypersomn ia 01025652 Active Not Available [facility] 3 06:47:55 Irregular periods 24288121 Completed Not Available [facility] 3 06:47:55 Fatigue 55211492 Active Not Available [facility] 3 06:47:55 Gout 40741757 Active Not Available [facility] 3 06:47:55 Osteoarth ritis 210282257 Active 2022 Priya Martin MD [address], [place], [address] , [employer] [facility] [email or web address] 3 10:01:57 Chronic low back pain 528569101 Active 2022 Priya Martin MD [address], [place], [address] , [facility] [email or web address] 3 06:54:08 Osteoarth ritis of right knee joint 41349288120 9100 Active 2022 BETH Covington null, [place] [employer] [facility] [email or web address] 3 11:32:06 Foot joint pain 600981407 Active 2023 JACKIE Hillman [address], [place], [address] , [facility] [employer] [facility] [employer] [facility] 4 20:01:14 Sinusitis 30151891 Active [address] Hillman [address], [place], [address] , [employer] [facility] [email or web address] 4 16:04:47 Problem Notes None recorded. Procedures Surgical History Date Name Laterality Status Provider Name and Address Organization Details Recorded Time Cholecystectomy completed Not Available [facility] 05/22/2022 06:40:04 extraction of wisdom tooth completed Not Available [facility] 05/22/2022 06:40:04 Imaging Results Imaging Date Name Status LastModified by Organiz ation Details LastModified Time 11/21/2022 MAMMO, screening, digital, bilateral completed [email or web address] [place] [address], [id number], 11/26/2022 08:44:46 01/23/2023 XR, finger(s) completed [address] [place] [address], [address], 01/24/2023 08:38:44 03/05/2023 XR, knee completed [email or web address] [facility] [place] [address], [place], [address], 03/09/2023 12:02:11 04/08/2023 MAMMO, screening, digital, bilateral completed [email or web address], [place], [address], 05/12/2023 11:35:15 Procedure Notes None recorded. Medical Equipment None Reported. Allergies No known drug allergies Medications Name Sig Start Date Stop Date Status Note LastModified by Organization Details LastModified Time cyclobenzap rine 10 mg tablet TAKE 1 TABLET BY MOUTH EVERY DAY AT BEDTIME active Not Available Not Available No t Available lisinopril 20 mg-hydrochl orothiazide 12.5 mg tablet TAKE 1 TABLET BY MOUTH EVERY DAY active Not Available Not Available No t Available fluconazole 150 mg tablet TAKE 1 TABLET BY MOUTH DIRECTED BY DOCTOR active Not Available Not Available No t Available meloxicam 15 mg tablet TAKE 1 TABLET BY MOUTH EVERY DAY active Not Available Not Available No t Available lisinopril 20 mg tablet TAKE 1 TABLET BY MOUTH EVERY DAY 06/05 completed Not Available Not Available Not Available phentermine 37.5 mg tablet active Not Available Not Available Not Available ciprofloxac in 500 mg tablet TAKE 1 TABLET BY MOUTH EVERY 12 HOURS FOR 10 DAYS active Not Available Not Available No t Available tramadol 50 mg tablet Take 1-2 TABLET EVERY 6 hours as needed active Not Available Not Available No t Available alprazolam 0.25 mg tablet TAKE 1 TABLET BY MOUTH THREE TIMES DAILY NEEDED active Not Available Not Available No t Available Lamisil 250 mg tablet Take 1 TABLET EVERY DAY by oral route for 12 weeks. active Not Available Not Available No t Available Kenalog 10 mg/mL suspension for injection in office 2023 active [facility]: 0003- 0494- 20 Not Available Not Available Not Available indomethaci n 50 mg capsule Take 1 capsule 3 times a day by oral route as needed. 01/14 completed Not Available Not Available Not Available hydrochloro thiazide 12.5 mg capsule TAKE 1 CAPSULE BY MOUTH DAILY 02/07 completed Not Available Not Available Not Available lisinopril 20 mg-hydrochl orothiazide 25 mg tablet TAKE 1 TABLET BY MOUTH EVERY DAY 01/30 completed Not Available Not Available Not Available allopurinol 300 mg tablet TAKE 1 TABLET BY MOUTH DAILY 2023 active Not Available Not Available Not Avai lable lisinopril 40 mg tablet TAKE 1 TABLET BY MOUTH EVERY DAY 06/05 completed Not Available Not Available Not Available ondansetron 4 mg disintegrat ing tablet 03/04 completed Not Available Not Available Not Available Ambien 10 mg tablet Take 1 tablet as needed by oral route for 30 days. 10/31 completed Not Available Not Available Not Available amoxicillin 875 mg-potassiu m clavulanate 125 mg tablet TAKE 1 TABLET BY MOUTH EVERY 12 HOURS FOR 10 DAYS FOR SINUS INFECTION active Not Available Not Available No t Available bupivacaine (PF) 0.25 % (2.5 mg/mL) injection solution in office 2023 active Not Available Not Available Not Avai lable hydrocodone 7.5 mg-acetamin ophen 325 mg/15 mL oral solution 03/04 completed Not Available Not Available Not Available omeprazole 2021 active Not Available Not Available Not Avai lable ropivacaine (PF) 5 mg/mL (0.5 %) injection solution in office 05/14 completed Not Available Not Available Not Available Vienva 0.1 mg-20 mcg tablet TAKE 1 TABLET BY MOUTH DAILY 03/04 completed Not Available Not Available Not Available Slynd 4 mg (28) tablet TAKE 1 TABLET BY MOUTH DAILY active Not Available Not Available No t Available COVID-19 test specimen collection DIRECTED 09/27 completed Not Available Not Available Not Available Vitals Date Recorded Body height Provider Name an d Address Organization Details Last Updated DateTime 09/04/2022 172.72 cm Dai Elise [employer] 09/04/2022 11:31:02 Date Recorded Body height Provider Name an d Address Organization Details Last Updated DateTime 12/06/2022 172.72 cm Dai Elise [employer] 12/06/2022 08:53:00 Date Recorded Body height Body mass index (BMI) Body weight Provider Name and Address Organization Details Last Updated DateTime 03/05/2023 171.45 cm 29.8 kg/m2 07621.33 g Dai Elise [employer] 03/05/2023 11:35:10 Date Recorded Body height Body mass index (BMI) Body weight Body temperature Heart rate Oxygen saturation Oxygen saturation in Arterial blood by Pulse oximetry Respiratory rate Systolic blood pressure Diastolic blood pressure Provider Name and Address Organization Details Last Updated DateTime 171.45 cm 30.1 kg/m2 02708.5 1 g 97.1 [degF] 74 /min 98 % 98 % 16 /min 132 mm[Hg] 84 mm[Hg] Domonique Devi RN [facility] 12:42:58 Date Recorded Body height Provider Name an d Address Organization Details Last Updated DateTime 06/09/2023 171.45 cm Mirna Sharp [facility] 06/09/2023 13:47:16 Social History Question Answer Notes LastModified by Organizat ion Details LastModified Time Tobacco Smoking Status Never Smoker Shefali Melara michelle [facility] 05/14/2023 12:39:29 What Is Your Level Of Alcohol Consumption? 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 Mental Status None recorded. Family History Relationship Description Onset Age of this Age Resolved Age Notes LastModified by Organization Details LastModified Time Mother Diabetes mellitus [id number] [id number] Not available 05/22/2022 06:40:05 Mother Hypercholest erolemia [id number] [id number] Not available 05/22/2022 06:40:05 Mother Hypertensive disorder [email or web address] [id number] Not available 05/22/2022 06:40:05 Father Hypercholest erolemia MIGRATION.408 [id number] Not available 05/22/2022 06:40:05 Father Myocardial infarction [email or web address].423 [id number] Not available 05/22/2022 06:40:05 Father Heart disease MIGRATION.304 [id number] Not available 05/22/2022 06:40:05 Father Hypertensive disorder MIGRATION.850 [id number] Not available 05/22/2022 06:40:05 Maternal Grandmother Family history of malignant neoplasm [email or web address] Not available 05/14 12:39:29 Medical History Condition Response USE OF NSAIDS Y GOUT Y HYPERTENSION Y Gynecological HistoryNo gynecological history recorded. Obstetrics History GPAL:G 0 P 0 0 0 0 Immunizations Vaccine Type Date Status Note Provider Nam e and Address Organization Details Recorded Time Tdap 02/16/2013 completed Not Available [facility] 05/22/2022 06:57:36 Past Encounters Encounter ID Performer Location Encounter Start Date Encounter Closed Date Diagnosis/Indication Diagnosis SNOMED-CT Code Diagnosis ICD10 Code Diagnosis Note [id number] [facility] [place] [address] [facility] [address] , [place] [address] 06/05/2020 00:00:00 06/05/2020 20:35:47 [id number] [facility] [place] [address] [facility] y , [place] [address] 09/27/2021 00:00:00 09/27/2021 19:21:17 [id number] [facility] [place] [address] [facility] y [place] [address] 12/27/2021 00:00:00 12/27/2021 20:32:15 [id number] [facility] [place] [address] [facility] y , [place] [address] 01/30/2022 00:00:00 01/30/2022 21:00:20 [id number] [facility] [place] [address] [place] [address] 03/04/2022 00:00:00 03/04/2022 17:50:47 [id number] JACKIE De La Rosa [facility] [place] [address] [place] [address] 06/05/2022 11:01:38 06/05/2022 12:38:49 Pain of right knee joint 1864064646 78018 M25.561 [id number] JACKIE De La Rosa [facility] [place] [address] [place] [address] 09/04/2022 11:25:11 09/04/2022 16:45:16 Osteoarthritis of right knee joint 8175564378 68063 M17.11 [id number] JACKIE De La Rosa [facility] [place] [address] [place] [address] 12/06/2022 08:51:36 12/06/2022 09:19:28 Osteoarthritis of right knee joint 4882976708 94785 M17.11 [id number] [address] Cron[address] MD [facility] [place] [address] [place] [address] 03/05/2023 11:05:54 03/10/2023 10:58:14 Osteoarthritis of right knee joint 9596711496 84194 M17.[id number] [facility] [address] [facility] , [address] [facility] [place] [address] 05/14/2023 12:34:03 05/14/2023 12:51:33 Chronic low back pain 776374134 M54.50 Foot joint pain 96826328 7 M79.671 M79.672 Gastroesop hageal reflux disease 397828623 K21.9 Hyperlipidemia 31834562 E78.5 Hypersomnia 15462231 G47 .10 Onychomycosis 789459234 B35.1 Osteoarthritis 804768912 M19.90 Osteoarthr itis of right knee joint 5042823085 22209 M17.11 [id number] De La Rosa [facility] [place] [address] [place] [address] 06/09/2023 13:41:47 06/09/2023 15:16:51 Osteoarthritis of right knee joint 1789090482 76705 M17.11 Health Concerns Section Related Observation LastModified by Organization Detai ls LastModified Time None Recorded Concern Status LastModified by Organization Details LastModified Time None Recorded Advance Directives Directive None Recorded Payers Encounter Date Sequence Insurance Name Policy Number Policy [place] Covered Member ID [place] Member ID Guarantor Name 09/04/2022 1 R [id number] Joann Khalil [id number] Joann Khalil 12/06/2022 1 UMR [id number] Joann Khalil [id number] Joann Khalil 03/05/2023 1 UMR [id number] Joann Khalil [id number] Joann Khalil 05/14/2023 1 UMR [id number] Joann Khalil [id number] Joann Khalil 06/09/2023 1 [id number] Joann Khalil [id number] Joann Khalil Notes Date Note Type Note Provider Name and Address Organization Details Recorded Time 03/05/2023 text/html patient returns for follow-up of her right knee pain. Previous x-rays have demonstrated moderately severe lateral compartment osteoarthritis. Her last injection 3 months ago it helped a great deal that over the last few weeks her pain has become rather severe again. She feels the cold weather aggravates it. She has been taking meloxicam 15 mg usually every other day. She is trying to use it sparingly in order to minimize her risk of developing stomach complications. she has undergone gastric sleeve procedure for weight loss. She did consult with her bariatric surgeon who stated that she may use the meloxicam if needed as long as she is taking Prilosec with that and to watch carefully for stomach issues. Lenard Cronin MD [address] [address], [place], [address], [employer] [facility] [email or web address] 03/09/2023 12:04:48 05/14/2023 text/html cortisone shots in knee ..... JACKIE Hillman [address], [place], [address], [email or web address] 05/21/2023 20:02:25 OBGyn Episode No OBEpisode recorded.
== END 2024-04-12 10:25 | disposition home or self-care (01) ==
LOC: ANHIMG 10:27
PROVIDERS: PCP Family Medicine; Visit Provider Obstetrics & Gynecology
DX: Z12.31 Encounter for screening mammogram for malignant neoplasm of breast (principal)
CPT/HCPCS: 77063; 77067